=== PATIENT | male | born 1955 | race Caucasian/White ===

== ENCOUNTER 2017-04-02 11:26 | Observation (INO) | payer MEDICARE, OTHER ==
[~2017-04-02] VITALS: Ht 185.4 cm; Wt 68.0 kg
[~2017-04-02 11:26] MED LIST: BUSP15TA PO; CYMB60CA PO; DEPA500T3 PO; FENO160T PO; KLON2TAB PO; TRAZ100 PO; TRIH5 PO
[2017-04-02 11:31] VITALS: BP 108/53; PULSE 61; RESP 24; TEMP 97.4; O2SAT 95
[2017-04-02 11:37] VITALS: BP 108/53; PULSE 71; RESP 24; O2SAT 95
--- NOTE | 2017-04-02 11:43 | PD ---
HPI Chief Complaint: Altered Mental Status Time Seen by Provider: 11:43 Travel History International Travel<30 days: No Contact w/Intl Traveler<30days: No Traveled to known affect area: No History of Present Illness HPI 62-year-old male presents to the emergency Department by EMS for evaluation of altered mental status. Patient is from [place] today at [place]. Patient was sent here for altered mental status, constant body movements, no coordination and difficulty focusing. According to EMS, the patient was first noticed to be altered approximately a week ago, but has been declining over the past 3 months. Patient has history of psychiatric disorder including schizoaffective disorder and bipolar disorder. He is on Depakote. He also has a history of TIA, depression, dyskinesia, anxiety, [place], CVA, hyperlipidemia. The patient is unable to contribute to history and physical at all and does not answer questions appropriately. The patient moves all extremities and follows some commands, but not all. PFSH Past Medical History Medical History: Unable to Obtain Arthritis: No Asthma: No Autoimmune Disease: No Blood Disorders: No Bipolar Disorder: Yes Anxiety: Yes Depression: No Heart Rhythm Problems: No Cancer: No Cardiac Catheterization: No Cardiovascular Problems: Yes (2014) High Cholesterol: Yes Chemotherapy: No Chest Pain: Yes (HX- STRESS TEST) Congestive Heart Failure: No COPD: No Cerebrovascular Accident: Yes Coronary Artery Disease: Yes Diabetes: No Diminished Hearing: Yes (both ears) Endocrine: No GERD: Yes (GERD) Genitourinary: No Headaches: Yes Hepatitis: No Hiatal Hernia: No Hypertension: Yes Immune Disorder: No Implanted Vascular Access Dvce: No Insomnia: Yes Kidney Stones: No Musculoskeletal: No Neurologic: Yes Psychiatric: Yes (BIPOLAR, SCHITZOAFFECTIVE D/O) Reproductive: No Respiratory: No Immunizations Current: Yes Migraines: No Myocardial Infarction: Yes (2012) Radiation Therapy: No Renal Failure: No Seizures: No Sickle Cell Disease: No Sleep Apnea: No Thyroid Disease: No Ulcer: Yes Influenza Vaccination: No PNEUMOCCOCAL Vaccine (Year): 2010 Past Surgical History Surgical History: Unable to Obtain Abdominal Surgery: Yes (LEFT INGUINAL HERNIA) AICD: No Appendectomy: No Arteriovenous Shunt: No Cardiac Surgery: No Cholecystectomy: No Coronary Artery Bypass Graft: No Ear Surgery: No Endocrine Surgery: No Eye Surgery: No Genitourinary Surgery: No Gynecologic Surgery: No Insulin Pump: No Joint Replacement: No Oral Surgery: Yes Pacemaker: No Thoracic Surgery: No Other Surgery: Yes (PATIENT DENIED HAVING SURGERY IN PAST) Social History Alcohol Use: Yes (OCCASIONALLY ) Tobacco Use: Yes (3-4 CIGS A DAY ) Substance Use: No Allergies-Medications (Allergen,Severity, Reaction): Coded Allergies: No Known Allergies (Verified , 12/02/15) Reported Meds & Prescriptions Reported Meds & Active Scripts Active Reported Trihexyphenidyl (Trihexyphenidyl HCl) 5 Mg Tab 5 Mg PO TID Trazodone (Trazodone HCl) 150 Mg Tab 150 Mg PO HS Multivitamin Men (Multiple Vitamins W/ Minerals) 1 Tab Tab 1 Tab PO DAILY Marinol (Dronabinol) 5 Mg Cap 5 Mg PO DAILY Metoprolol Tartrate 25 Mg Tab 12.5 Mg PO BID Hold if SBP <120 or HR <60 Enulose Liq (Lactulose (Encephalopathy) Liq) 10 Gm/15 Ml Soln 20 Gm PO TID Lac-Hydrin (Lactic Acid (Ammonium Lactate)) 12% Lotn 1 Applic TOPICAL Q8HR Apply to affected area(s) every shift for rash Klonopin (Clonazepam) 2 Mg Tab 2 Mg PO Q8HR Nizoral Topical Shampoo (Ketoconazole) 2% Sham 1 Applic TOPICAL MOWEFR Apply to scalp every Monday,Monday and Monday for seborrheic dermatitis Hydroxyzine HCl 25 Mg Tab 25 Mg PO Q6HR PRN Lortab (Hydrocodone-Acetaminophen) 10-325 Mg Tab 1 Tab PO Q4H PRN Fenofibrate 160 Mg Tab 160 Mg PO HS Depakote DR (Divalproex Sodium) 250 Mg Tabdr 750 Mg PO BID Cymbalta DR (Duloxetine HCl) 60 Mg Capdr 120 Mg PO HS Review of Systems Except as stated in HPI: all other systems reviewed are Neg Physical Exam Narrative GENERAL: Well-nourished, well-developed male patient, who appears older than his stated age. Patient does have tardive dyskinesia and lip smacking. Patient does not answer any questions appropriately. He is alert, but not oriented. SKIN: Focused skin assessment warm/dry. HEAD: Normocephalic. Atraumatic. EYES: No scleral icterus. No injection or drainage. NECK: Supple, trachea midline. No JVD or lymphadenopathy. CARDIOVASCULAR: Regular rhythm without murmurs, gallops, or rubs. Patient is bradycardic with heart rate in the 40s to 50s. RESPIRATORY: Breath sounds equal bilaterally. No accessory muscle use. Lungs sounds are clear to auscultation. GASTROINTESTINAL: Abdomen soft, non-tender, nondistended. MUSCULOSKELETAL: No cyanosis, or edema. Patient moves all extremities without difficulty. BACK: Nontender without obvious deformity. No CVA tenderness. Data Data Last Documented VS Vital Signs Date Time Temp Pulse Resp B/P Pulse Ox O2 Delivery O2 Flow Rate FiO2 04/02/17 13:29 94 22 125/83 98 Room Air 04/02/17 11:31 97.4 Orders Electrocardiogram (04/02/17 11:41) Ammonia (04/02/17 11:41) Complete Blood Count With Diff (04/02/17 11:41) Comprehensive Metabolic Panel (04/02/17 11:41) Creatine Kinase (Cpk) (04/02/17 11:41) Prothrombin Time / Inr (Pt) (04/02/17 11:41) Act Partial Throm Time (Ptt) (04/02/17 11:41) Troponin I (04/02/17 11:41) Urinalysis - C+S If Indicated (04/02/17 11:41) Chest, Single Ap (04/02/17 11:41) Ct Brain W/O Iv Contrast(Rout) (04/02/17 11:41) Blood Glucose (04/02/17 11:41) Ecg Monitoring (04/02/17 11:41) Iv Access Insert/Monitor (04/02/17 11:41) Oximetry (04/02/17 11:41) Sodium Chloride 0.9% Flush (Ns Flush) (04/02/17 11:45) Magnesium (Mg) (04/02/17 11:41) Valproic Acid (Depakene) (04/02/17 11:41) Sodium Chlorid 0.9% 500 Ml Inj (Ns 500 M (04/02/17 11:45) Cath For Specimen (04/02/17 11:41) Urinary Catheter Management NANCY.Q8H (04/02/17 11:50) Diphenhydramine Inj (Benadryl Inj) (04/02/17 12:15) Ceftriaxone Inj (Rocephin Inj) (04/02/17 13:45) Admit Order (Ed Use Only) (04/02/17 13:48) Labs Laboratory Tests Test 04/02/17 04/02/17 11:47 12:03 White Blood Count 4.6 TH/MM3 Red Blood Count 4.18 MIL/MM3 Hemoglobin 13.4 GM/DL Hematocrit 38.4 % Mean Corpuscular Volume 91.8 FL Mean Corpuscular Hemoglobin 32.0 PG Mean Corpuscular Hemoglobin 34.9 % Concent Red Cell Distribution Width 14.8 % Platelet Count 134 TH/MM3 Mean Platelet Volume 7.5 FL Neutrophils (%) (Auto) 45.5 % Lymphocytes (%) (Auto) 32.9 % Monocytes (%) (Auto) 16.7 % Eosinophils (%) (Auto) 3.9 % Basophils (%) (Auto) 1.0 % Neutrophils # (Auto) 2.1 TH/MM3 Lymphocytes # (Auto) 1.5 TH/MM3 Monocytes # (Auto) 0.8 TH/MM3 Eosinophils # (Auto) 0.2 TH/MM3 Basophils # (Auto) 0.0 TH/MM3 CBC Comment DIFF FINAL Differential Comment Prothrombin Time 11.7 SEC Prothromb Time International 1.1 RATIO Ratio Activated Partial 30.6 SEC Thromboplast Time Sodium Level 142 MEQ/L Potassium Level 4.4 MEQ/L Chloride Level 104 MEQ/L Carbon Dioxide Level 32.5 MEQ/L Anion Gap 6 MEQ/L Blood Urea Nitrogen 25 MG/DL Creatinine 1.14 MG/DL Estimat Glomerular Filtration 65 ML/MIN Rate Random Glucose 81 MG/DL Calcium Level 9.2 MG/DL Magnesium Level 2.4 MG/DL Total Bilirubin 0.8 MG/DL Aspartate Amino Transf 37 U/L (AST/SGOT) Alanine Aminotransferase 27 U/L (ALT/SGPT) Alkaline Phosphatase 57 U/L Ammonia LESS THAN 10 MCMOL/L Total Creatine Kinase 54 U/L Troponin I 0.03 NG/ML Total Protein 6.7 GM/DL Albumin 2.9 GM/DL Valproic Acid (Depakene) Level 56 MCG/ML Urine Color DARK-YELLOW Urine Turbidity HAZY Urine pH 6.5 Urine Specific [place] 1.025 Urine Protein 30 mg/dL Urine Glucose (UA) NEG mg/dL Urine Ketones 10 mg/dL Urine Occult Blood TRACE Urine Nitrite NEG Urine Bilirubin NEG Urine Urobilinogen GREATER THAN 12.0 MG/DL Urine Leukocyte Esterase MOD Urine RBC 6 /hpf Urine WBC 6 /hpf Urine Transitional Epithelial 1 /hpf Cells Urine Hyaline Casts 4 /lpf Urine Mucus MANY /lpf Microscopic Urinalysis Comment CATH-CULT NOT IND MDM Medical Decision Making Medical Screen Exam Complete: Yes Emergency Medical Condition: Yes Medical Record Reviewed: Yes Interpretation(s) Last Impressions Chest X-Ray 04/02/17 1141 Signed Impressions: Service Date/Time: Sunday, April 02, 2017 11:52 - CONCLUSION: No acute disease. Casimiro Wallace MD CT brain - CONCLUSION: 1. Remote right thalamic lacunar infarct. 2. No acute intracranial abnormality. Differential Diagnosis Electrolyte abnormality versus cardiac arrhythmia versus pneumonia versus intracranial abnormality versus dehydration versus UTI versus hyperammonemia Narrative Course 62-year-old male presents to the emergency department from a month a group home for altered mental status. Apparently he has been declining over the past 3 months, but had worsening decline over the past week. EKG, CBC, CMP, CK, troponin, ammonia, magnesium, PTT, PTT/INR, Depakote level, UA are ordered and pending. Chest x-ray and CT of the brain are ordered and pending. Patient is given normal saline 500 mL bolus. EKG shows sinus bradycardia, heart rate 46, no acute ST changes. CBC shows no acute abnormality, platelets are low at 134. CMP shows no acute abnormality. CK is 54. Troponin is 0.03. Ammonia is less than 10. Magnesium is 2.4. PT is 11.7, and INR 1.1, PTT 30.6. Depakote level is 56. UA shows moderate leukocyte esterase, 6 WBC. Chest x-ray shows no acute disease. CT of the brain shows remote right thalamic lacunar infarct; no acute intracranial abnormality. Patient is given Rocephin 1 gm IV. He will be admitted for AMS; UTI. Residents are paged for admission. Dr. Truong accepted admission. Diagnosis Primary Impression: Altered mental status Qualified Code: R41.82 - Altered mental status, unspecified altered mental status type Additional Impression: Urinary tract infection Qualified Code: N30.01 - Acute cystitis with hematuria Admitting Information Admitting Physician Requests: Observation Yoselin Read April 02, 2017 11:43
[2017-04-02] MEDS ORDERED: SODIUM CHLORIDE 0.9% FLUSH 10 ML FLUSH IVF PRN (11:45)
[2017-04-02] MEDS ORDERED: SODIUM CHLORID 0.9% 500 ML INJ 500 ML IV ONE (11:45)
[2017-04-02 11:58] LABS: AUTOMATED NEUTROPHIL # 2.1 TH/MM3 (1.8-7.7); EOSINOPHIL # 0.2 TH/MM3 (0-0.4); EOSINOPHIL % 3.9 % (0.0-4.0); HEMATOCRIT 38.4 % (39.0-51.0); HEMO FLAGS DIFF FINAL; LYMPH % 32.9 % (9.0-44.0); LYMPHOCYTE # 1.5 TH/MM3 (1.0-4.8); MEAN CELL VOLUME 91.8 FL (80.0-100.0); MEAN CORPUSCULAR HGB CONC 34.9 % (32.0-36.0); MONO % 16.7 % (0.0-8.0); NEUT % 45.5 % (16.0-70.0); PLATELET COUNT 134 TH/MM3 (150-450); RED BLOOD COUNT 4.18 MIL/MM3 (4.50-5.90); RED CELL DISTRIBUTION WIDTH 14.8 % (11.6-17.2); WHITE BLOOD COUNT 4.6 TH/MM3 (4.0-11.0)
[2017-04-02] MEDS ORDERED: METO25TA3 PO (12:01)
[2017-04-02] MEDS ORDERED: KLON2TAB PO (12:01)
[2017-04-02] MEDS ORDERED: LAC-12LO3 TOPICAL (12:01)
[2017-04-02] MEDS ORDERED: CYMB60CA PO (12:01)
[2017-04-02] MEDS ORDERED: KETOC2%T TOPICAL (12:01)
[2017-04-02] MEDS ORDERED: HYDR-3133 PO (12:01)
[2017-04-02] MEDS ORDERED: TRIH5TAB2 PO (12:01)
[2017-04-02] MEDS ORDERED: FENO160T PO (12:01)
[2017-04-02] MEDS ORDERED: LACT10SO47 PO (12:01)
[2017-04-02] MEDS ORDERED: MARI5CAP PO (12:01)
[2017-04-02] MEDS ORDERED: MULT1TAB85 PO (12:01)
[2017-04-02] MEDS ORDERED: TRAZ150T75 PO (12:01)
[2017-04-02] MEDS ORDERED: DEPA250T2 PO (12:01)
[2017-04-02] MEDS ORDERED: HYDR-3535 PO (12:01)
--- NOTE | 2017-04-02 12:01 | RADRPT ---
EXAM DATE/TIME: 04/02/2017 11:52 [facility] COMPARISON: CHEST SINGLE AP, December 05, 2015, 8:20. INDICATIONS : Short of breath MEDICAL HISTORY : Cardiovascular disease. Hypertension seizure, history of intracranial hemmorhage SURGICAL HISTORY : None. ENCOUNTER: Initial ACUITY: 1 day PAIN SCORE: 0/10 LOCATION: Bilateral chest FINDINGS: A single view of the chest demonstrates the lungs to be symmetrically aerated without evidence of mas s, infiltrate or effusion. The cardiomediastinal contours are unremarkable. Osseous structures are intact. CONCLUSION: No acute disease. Casimiro Wallace MD on April 02, 2017 at 11:58 Board Certified Radiologist. This report was verified electronically.
[2017-04-02 12:07] LABS: APTT (PATIENT) 30.6 SEC (24.3-30.1); INTERNATIONAL NORMALIZED RATIO 1.1 RATIO; PROTHROMBIN TIME - PATIENT 11.7 SEC (9.8-11.6)
[2017-04-02 12:12] VITALS: BP 115/62; PULSE 64; RESP 18; O2SAT 96
[2017-04-02] MEDS ORDERED: diphenhydrAMINE HCL 50 MG/ML VIAL IV PUSH ONE ×2 (12:15→14:15)
[2017-04-02 12:17] LABS: BLOOD, URINE TRACE (NEG); GLUCOSE,URINE NEG (NEG); HYALINE CAST, URINE 4 /lpf (RARE); KETONE, URINE 10 mg/dL (NEG); MUCUS URINE MANY /lpf (OCC); NITRITE,URINE NEG (NEG); PH, URINE 6.5 (5.0-8.5); TRANSITIONAL EPI CELLS, URINE 1 /hpf; URINE COLOR DARK-YELLOW (YELLW/STRAW)
[2017-04-02 12:19] LABS: ALT (GPT) 27 U/L (12-78); ANION GAP 6 MEQ/L (5-15); AST (GOT) 37 U/L (15-37); BICARBONATE 32.5 MEQ/L (21.0-32.0); BLOOD UREA NITROGEN 25 MG/DL (7-18); CHLORIDE 104 MEQ/L (98-107); GLOMERULAR FILTRATION RATE 65 ML/MIN (>89); MAGNESIUM 2.4 MG/DL (1.5-2.5); POTASSIUM 4.4 MEQ/L (3.5-5.1); SODIUM (NA) 142 MEQ/L (136-145)
[2017-04-02 12:19] LABS: COMMENT (UR) CATH-CULT NOT IND; CULTURE IF INDICATED CATH CULTURE NOT IND
[2017-04-02 12:22] LABS: ALKALINE PHOSPHATASE 57 U/L (45-117); TOTAL BILIRUBIN ADULT 0.8 MG/DL (0.2-1.0)
[2017-04-02 12:25] LABS: CREATINE KINASE 54 U/L (39-308)
[2017-04-02 13:29] VITALS: BP 125/83; PULSE 94; RESP 22; O2SAT 98
--- NOTE | 2017-04-02 13:32 | RADRPT ---
EXAM DATE/TIME: 04/02/2017 13:16 [facility] COMPARISON: CT BRAIN W/O CONTRAST, December 02, 2015, 6:25. INDICATIONS : Altered Menta Status. RADIATION DOSE: 56.35 CTDIvol (mGy) MEDICAL HISTORY : Cardiovascular disease. Stroke Hypertension. SURGICAL HISTORY : None. ENCOUNTER: Initial ACUITY: 1 day PAIN SCALE: 0/10 LOCATION: cranial TECHNIQUE: Multiple contiguous axial images were obtained of the head. Using automated exposure control and adj ustment of the mA and/or kV according to patient size, radiation dose was kept as low as reasonably a chievable to obtain optimal diagnostic quality images. FINDINGS: CEREBRUM: The ventricles are normal for age. All lacunar infarcts right thalamus. No evidence of midline shift , mass lesion, hemorrhage or acute infarction. No extra-axial fluid collections are seen. POSTERIOR FOSSA: The cerebellum and brainstem are intact. The 4th ventricle is midline. The cerebellopontine angle i s unremarkable. EXTRACRANIAL: The visualized portion of the orbits is intact. SKULL: The calvaria is intact. No evidence of skull fracture. CONCLUSION: 1. Remote right thalamic lacunar infarct. 2. No acute intracranial abnormality. Casimiro Wallace MD on April 02, 2017 at 13:28 Board Certified Radiologist. This report was verified electronically.
[2017-04-02] MEDS ORDERED: cefTRIAXone INJ 1,000 MG in SODIUM CHLORIDE 0.9% INJ 100 ML IV ONE (13:45)
[2017-04-02] MEDS: SODIUM CHLORIDE 0.9% FLUSH 10 ML FLUSH IV FLUSH SCH ×2 (14:15→21:00)
[2017-04-02] MEDS ORDERED: SODIUM CHLORIDE 0.9% FLUSH 10 ML FLUSH IV FLUSH PRN (14:15)
[2017-04-02] MEDS: SODIUM CHLOR 0.9% 1000 ML INJ 1,000 ML IV SCH ×2 (14:44→23:45)
--- NOTE | 2017-04-02 14:45 | HHI.HP ---
HPI Service Family Medicine Primary Care Physician No Primary Care Physician Admission Diagnosis AMS, UTI Diagnoses: International Travel<30 Days: No Contact w/Intl Traveler<30days: No Known Affected Area: No History of Present Illness Patient is currently altered and unable to obtain history of present illness from the patient as the only question he can answer us his name History of present illness obtained from chart review This is a 62-year-old male with past medical history significant for schizoaffective disorder, tardive dyskinesia, seizures, hyperlipidemia, hypertension, dementia and CVA. He was brought in by EMS from his senior living at [facility] in [facility]. He has been having worsening dementia over the last 3 months but has been declining quickly over the last week. Today the altered mental status was severe enough they decided to bring him to the hospital. When asking him questions he can say his name, everything else is incoherent. Of note for seizures she is currently on Depakote, and levels are therapeutic Review of Systems ROS Limitations: Clinical Condition, Altered Mental Status, Uncooperative, Psychotic, Poor Historian Past Family Social History Past Medical History From chart review Schizoaffective disorder Seizure disorder Hypertension Hyperlipidemia Reported history of CAD, the patient denies Reported history of CVA, although the patient is not clear on this, and also is reportedly on Xarelto GERD Tardive dyskinesia Past Surgical History Inguinal hernia repair Tib-fib fracture repair Appendectomy Reported Medications Reported Meds & Active Scripts Active Reported Trihexyphenidyl (Trihexyphenidyl HCl) 5 Mg Tab 5 Mg PO TID Trazodone (Trazodone HCl) 150 Mg Tab 150 Mg PO HS Multivitamin Men (Multiple Vitamins W/ Minerals) 1 Tab Tab 1 Tab PO DAILY Marinol (Dronabinol) 5 Mg Cap 5 Mg PO DAILY Metoprolol Tartrate 25 Mg Tab 12.5 Mg PO BID Hold if SBP <120 or HR <60 Enulose Liq (Lactulose (Encephalopathy) Liq) 10 Gm/15 Ml Soln 20 Gm PO TID Lac-Hydrin (Lactic Acid (Ammonium Lactate)) 12% Lotn 1 Applic TOPICAL Q8HR Apply to affected area(s) every shift for rash Klonopin (Clonazepam) 2 Mg Tab 2 Mg PO Q8HR Nizoral Topical Shampoo (Ketoconazole) 2% Sham 1 Applic TOPICAL MOWEFR Apply to scalp every Monday,Monday and Monday for seborrheic dermatitis Hydroxyzine HCl 25 Mg Tab 25 Mg PO Q6HR PRN Lortab (Hydrocodone-Acetaminophen) 10-325 Mg Tab 1 Tab PO Q4H PRN Fenofibrate 160 Mg Tab 160 Mg PO HS Depakote [address] (Divalproex Sodium) 250 Mg Tabdr 750 Mg PO BID Cymbalta DR (Duloxetine HCl) 60 Mg Capdr 120 Mg PO HS Allergies: Coded Allergies: No Known Allergies (Verified , 12/02/15) Family History CAD Social History Lives in a senior living at [facility] Former history of tobacco abuse, patient quit timeline unknown For history of alcohol abuse, patient quit timeline unknown Denies illegal drug use Physical Exam Vital Signs Vital Signs Date Time Temp Pulse Resp B/P Pulse Ox O2 Delivery O2 Flow Rate FiO2 04/02/17 13:29 94 22 125/83 98 Room Air 04/02/17 12:12 64 18 115/62 96 Room Air 04/02/17 11:37 71 24 108/53 95 Room Air 04/02/17 11:31 97.4 61 24 108/53 95 Physical Exam GENERAL: Well-nourished, well-developed male patient, who appears older than his stated age. Patient does have tardive dyskinesia and lip smacking. Patient does not answer any questions appropriately. He is alert, but not oriented. Currently in restraints, with Pope in place SKIN: Focused skin assessment warm/dry. HEAD: Normocephalic. Atraumatic. EYES: No scleral icterus. No injection or drainage. NECK: Supple, trachea midline. No JVD or lymphadenopathy. CARDIOVASCULAR: Regular rhythm without murmurs, gallops, or rubs. Patient is bradycardic with heart rate in the 50s to 60s. RESPIRATORY: Breath sounds equal bilaterally. No accessory muscle use. Lungs sounds are clear to auscultation. Unable to follow commands for deep breaths GASTROINTESTINAL: Abdomen soft, non-tender, nondistended. MUSCULOSKELETAL: No cyanosis, or edema. Patient moves all extremities without difficulty. BACK: Nontender without obvious deformity. No CVA tenderness. Neuro: Awake and alert however not oriented. Only question he could coherently answer was his name, unable to follow commands. Jumbled speech. Tardive dyskinesia with lip smacking. Currently in restraints Laboratory Laboratory Tests Test 04/02/17 04/02/17 11:47 12:03 White Blood Count 4.6 Red Blood Count 4.18 Hemoglobin 13.4 Hematocrit 38.4 Mean Corpuscular Volume 91.8 Mean Corpuscular Hemoglobin 32.0 Mean Corpuscular Hemoglobin 34.9 Concent Red Cell Distribution Width 14.8 Platelet Count 134 Mean Platelet Volume 7.5 Neutrophils (%) (Auto) 45.5 Lymphocytes (%) (Auto) 32.9 Monocytes (%) (Auto) 16.7 Eosinophils (%) (Auto) 3.9 Basophils (%) (Auto) 1.0 Neutrophils # (Auto) 2.1 Lymphocytes # (Auto) 1.5 Monocytes # (Auto) 0.8 Eosinophils # (Auto) 0.2 Basophils # (Auto) 0.0 CBC Comment DIFF FINAL Differential Comment Prothrombin Time 11.7 Prothromb Time International 1.1 Ratio Activated Partial 30.6 Thromboplast Time Sodium Level 142 Potassium Level 4.4 Chloride Level 104 Carbon Dioxide Level 32.5 Anion Gap 6 Blood Urea Nitrogen 25 Creatinine 1.14 Estimat Glomerular Filtration 65 Rate Random Glucose 81 Calcium Level 9.2 Magnesium Level 2.4 Total Bilirubin 0.8 Aspartate Amino Transf 37 (AST/SGOT) Alanine Aminotransferase 27 (ALT/SGPT) Alkaline Phosphatase 57 Ammonia LESS THAN 10 Total Creatine Kinase 54 Troponin I 0.03 Total Protein 6.7 Albumin 2.9 Valproic Acid (Depakene) Level 56 Urine Color DARK-YELLOW Urine Turbidity HAZY Urine pH 6.5 Urine Specific [place] 1.025 Urine Protein 30 Urine Glucose (UA) NEG Urine Ketones 10 Urine Occult Blood TRACE Urine Nitrite NEG Urine Bilirubin NEG Urine Urobilinogen GREATER THAN 12.0 Urine Leukocyte Esterase MOD Urine RBC 6 Urine WBC 6 Urine Transitional Epithelial 1 Cells Urine Hyaline Casts 4 Urine Mucus MANY Microscopic Urinalysis Comment CATH-CULT NOT IND Date/Time Procedure Status Source Growth 04/02/17 12:03 Urine Culture Received Urine Catheterized Urine Pending Result Diagram: 04/02/17 1147 04/02/17 1147 Imaging Last Impressions Head CT 04/02/17 1141 Signed Impressions: Service Date/Time: Sunday, April 02, 2017 13:16 - CONCLUSION: 1. Remote right thalamic lacunar infarct. 2. No acute intracranial abnormality. Casimiro Wallace MD Chest X-Ray 04/02/17 1141 Signed Impressions: Service Date/Time: Sunday, April 02, 2017 11:52 - CONCLUSION: No acute disease. Casimiro Wallace MD Assessment and Plan Assessment and Plan This is a 62-year-old male with past medical history significant for schizoaffective disorder, tardive dyskinesia, seizures, hyperlipidemia, hypertension, dementia and CVA. Being admitted for altered mental status with questionable UTI. Code Status DNR Discussed Condition With WDW: Dr. Jaffe Problem List: (1) Altered mental status Status: Acute Plan: Patient with underlying dementia has been declining over the last 3 months. Rapid decline over the last week. Cause believed to be either UTI versus worsening since psychiatric disorder versus worsening dementia versus CVA versus seizure activity. * Admit to observation * Consulted neurology, recommendations appreciated * Consulted psychiatry, recommendations appreciated * MRI pending * IV NS at 110 MLS per hour * Troponins are within normal limits * See UTI plan below * Continue restraints * Continue Pope (2) Urinary tract infection Status: Acute Plan: Urine is dark, hazy, trace blood, positive urobilinogen, many mucus. Questionable for urinary tract infection * Continue Rocephin 1 g IV every 24 hours (3) Seizure Status: Chronic Plan: History of seizure activity. Currently on Depakote levels are therapeutic. * Neurology consulted, recommendations appreciated * Continue home medication of Depakote * Continue clonazepam (4) Schizoaffective disorder Status: Chronic Plan: History of schizoaffective disorder with tardive dyskinesia * Continue home medication of duloxetine * Continue home medication of Trihexyphenidyl (5) HTN (hypertension) Status: Chronic Plan: Long-standing history of hypertension. * Continue home medication metoprolol, but will hold for SBP less than 120 or heart rate less than 60 (6) Nutrition, metabolism, and development symptoms Status: Acute Plan: Diet: Soft diet Currently in restraints Neuro checks every 4 Vitals every 4 Monitor I's and O's Placed on bereavement program coordinator electrolytes and replace accordingly CODE STATUS: Full code Disposition: Uncertain at this time, and the recommendations from neurology, psychiatry as well as improvement of altered mental status Problem Qualifiers (1) Altered mental status: Qualified Code: R41.82 - Altered mental status, unspecified altered mental status type (2) Urinary tract infection: Qualified Code: N30.01 - Acute cystitis with hematuria Eddi Truong MD R2 April 02, 2017 14:45
[2017-04-02] MEDS: ENOXAPARIN SODIUM 40 MG/0.4 ML SYRINGE SQ SCH (14:49)
[2017-04-02] MEDS ORDERED: LORazepam 2 MG/ML VIAL IV PUSH ONE (15:00)
[2017-04-02 15:52] VITALS: BP 113/60; PULSE 92; RESP 18; TEMP 97.8; O2SAT 95
[2017-04-02] MEDS: LACTULOSE SYRUP 20 GM/30 ML CUP PO SCH (18:42)
[2017-04-02] MEDS: TRIHEXYPHENIDYL HCL 5 MG TAB PO SCH (18:42)
--- NOTE | 2017-04-02 18:54 | RADRPT ---
EXAM DATE/TIME: 04/02/2017 18:09 [facility] COMPARISON: No previous studies available for comparison. INDICATIONS : CVA. MEDICAL HISTORY : Hypertension. SURGICAL HISTORY : Inguinal hernia repair. ENCOUNTER: Initial ACUITY: 1 day PAIN SCORE: 0/10 LOCATION: cranial TECHNIQUE: Multiplanar, multisequence MRI of the brain was performed without contrast. FINDINGS: Moderate motion artifact is present. Scattered periventricular white matter changes are noted. Ther e is no restricted diffusion evident. Midline structures are intact GRE acquisitions are degraded by motion. Ventricular size is appropriate There are no extra-axial fluid collections appreciated Posterior fossa is unremarkable. CONCLUSION: Limited by motion, negative for an acute process.. Noel Calle MD FACR on April 02, 2017 at 18:51 Board Certified Radiologist. This report was verified electronically.
[2017-04-02 20:03] VITALS: PULSE 60
[2017-04-02] MEDS: DIVALPROEX SODIUM DELAYED RELEASE 250 MG TAB PO SCH (21:13)
[2017-04-02] MEDS: FENOFIBRATE 145 MG TAB PO SCH (21:13)
[2017-04-02] MEDS: METOPROLOL TARTRATE 25 MG TAB PO SCH (21:13)
[2017-04-02] MEDS: DULoxetine HCl DR 60 MG CAP PO SCH (21:13)
[2017-04-02] MEDS: LACTIC ACID (AMMONIUM LACTATE) 12% LOTION 225 GM BTL TOPICAL SCH (21:14)
[2017-04-02] MEDS: clonazePAM 1 MG TAB PO SCH (21:16)
[2017-04-03 00:27] VITALS: BP 115/70; PULSE 85; RESP 20; O2SAT 99
[2017-04-03 05:17] VITALS: BP 97/56; PULSE 58; RESP 20; O2SAT 99
[2017-04-03] MEDS: clonazePAM 1 MG TAB PO SCH ×3 (06:02→20:35)
[2017-04-03] MEDS: LACTIC ACID (AMMONIUM LACTATE) 12% LOTION 225 GM BTL TOPICAL SCH ×3 (06:03→20:36)
[2017-04-03 08:00] VITALS: BP 106/59; PULSE 52; PULSE 80; RESP 19; TEMP 97.5; O2SAT 94
[2017-04-03 08:24] LABS: AUTOMATED NEUTROPHIL # 3.9 TH/MM3 (1.8-7.7); BASOPHIL % 0.6 % (0.0-2.0); EOSINOPHIL # 0.3 TH/MM3 (0-0.4); EOSINOPHIL % 3.8 % (0.0-4.0); HEMATOCRIT 31.8 % (39.0-51.0); HEMO FLAGS DIFF FINAL; LYMPH % 20.7 % (9.0-44.0); LYMPHOCYTE # 1.4 TH/MM3 (1.0-4.8); MEAN CELL VOLUME 91.7 FL (80.0-100.0); MEAN CORPUSCULAR HEMOGLOBIN 31.8 PG (27.0-34.0); MEAN CORPUSCULAR HGB CONC 34.7 % (32.0-36.0); MONO % 15.9 % (0.0-8.0); PLATELET COUNT 114 TH/MM3 (150-450); RED BLOOD COUNT 3.47 MIL/MM3 (4.50-5.90); RED CELL DISTRIBUTION WIDTH 14.9 % (11.6-17.2); WHITE BLOOD COUNT 6.7 TH/MM3 (4.0-11.0)
[2017-04-03] MEDS: SODIUM CHLOR 0.9% 1000 ML INJ 1,000 ML IV SCH ×2 (08:27→17:33)
[2017-04-03 08:55] LABS: ALKALINE PHOSPHATASE 50 U/L (45-117); ALT (GPT) 20 U/L (12-78); ANION GAP 6 MEQ/L (5-15); AST (GOT) 28 U/L (15-37); BICARBONATE 30.5 MEQ/L (21.0-32.0); BLOOD UREA NITROGEN 15 MG/DL (7-18); CHLORIDE 107 MEQ/L (98-107); GLOMERULAR FILTRATION RATE 96 ML/MIN (>89); POTASSIUM 3.8 MEQ/L (3.5-5.1); SODIUM (NA) 143 MEQ/L (136-145); TOTAL BILIRUBIN ADULT 0.7 MG/DL (0.2-1.0)
[2017-04-03] MEDS: SODIUM CHLORIDE 0.9% FLUSH 10 ML FLUSH IV FLUSH SCH ×2 (09:00→20:34)
--- NOTE | 2017-04-03 11:46 | HHI.FPPN ---
Subjective Remarks Patient seen and examined this morning. When asking questions about how he is doing today and what his name is, he says he does not feel like talking or answering questions. Vital signs overnight have been stable. Nursing reports no concerns or questions. (Rody Reyna MD) Objective Vitals Vital Signs Date Time Temp Pulse Resp B/P Pulse Ox O2 Delivery O2 Flow Rate FiO2 04/03/17 08:00 97.5 80 19 106/59 94 04/03/17 05:17 58 20 97/56 99 04/03/17 00:27 85 20 115/70 99 04/02/17 20:03 60 04/02/17 15:52 97.8 92 18 113/60 95 04/02/17 13:29 94 22 125/83 98 Room Air 04/02/17 12:12 64 18 115/62 96 Room Air 04/02/17 11:37 71 24 108/53 95 Room Air I/O 04/02/17 04/02/17 04/02/17 04/03/17 04/03/17 04/03/17 07:00 15:00 23:00 07:00 15:00 23:00 Intake Total 220 ml 240 ml Output Total 700 ml 600 ml Balance -480 ml -360 ml Intake Oral 240 ml IV Total 220 ml Output Urine Total 700 ml 600 ml (Rody Reyna MD) Result Diagram: 04/03/17 0736 04/03/17 0736 Imaging Last Impressions Head CT 04/02/17 1141 Signed Impressions: Service Date/Time: Sunday, April 02, 2017 13:16 - CONCLUSION: 1. Remote right thalamic lacunar infarct. 2. No acute intracranial abnormality. Casimiro Wallace MD Chest X-Ray 04/02/17 1141 Signed Impressions: Service Date/Time: Sunday, April 02, 2017 11:52 - CONCLUSION: No acute disease. Casimiro Wallace MD Brain MRI 04/02/17 0000 Signed Impressions: Service Date/Time: Sunday, April 02, 2017 18:09 - CONCLUSION: Limited by motion , negative for an acute process.. Noel Calle MD FACR Objective Remarks GENERAL: Well-nourished, well-developed male patient, who appears older than his stated age. Patient does have tardive dyskinesia and lip smacking. He is alert, but not oriented. Currently in restraints, with Pope in place CARDIOVASCULAR: Regular rate and rhythm without murmurs, gallops, or rubs. 0s. RESPIRATORY: Breath sounds equal bilaterally. No accessory muscle use. Lungs sounds are clear to auscultation. GASTROINTESTINAL: Abdomen soft, non-tender, nondistended. MUSCULOSKELETAL: No cyanosis, or edema. Patient moves all extremities without difficulty. BACK: Nontender without obvious deformity. No CVA tenderness. Neuro: Awake and alert however not oriented. Able to follow commands. Moves all 4 extremities well. Tardive dyskinesia with lip smacking. Currently in restraints (Rody Reyna MD) Urinary Catheter: Yes Assessment to: Continue Pope insert reason: Prolonged Immobilization (Rody Reyna MD) A/P Assessment and Plan This is a 62-year-old male with past medical history significant for schizoaffective disorder, tardive dyskinesia, seizures, hyperlipidemia, hypertension, dementia and CVA. Being admitted for altered mental status with questionable UTI. Discharge Planning Pending results of urine and blood cultures and improvement in mental status, possibly within next 1-2 days (Rody Reyna MD) Attending Attestation Patient seen and examined. Case reviewed and discussed with the resident team. Agree with plan of care as discussed with me and documented in the resident note (Rubén Jaffe MD) Problem List: (1) Altered mental status Status: Acute Plan: Patient with underlying dementia has been declining over the last 3 months. Rapid decline over the last week. Cause believed to be either UTI versus worsening since psychiatric disorder versus worsening dementia. MRI brain was limited by motion, but was negative for an acute process. Troponin within normal limits. * Admit to observation * Consulted psychiatry, recommendations appreciated * Canceled consultation to neurology, patient is moving all 4 extremities well * IV NS at 110 MLS per hour * Blood cultures no growth 1 day * See UTI plan below * Continue restraints * Continue Pope * Discussed with nurse and patient did not present to the hospital with hearing aids, but appears to be hard of hearing. Nurse states that she will call the group home to find out if he does have hearing aids and if we can get these for him. (2) Urinary tract infection Status: Acute Plan: Urine is dark, hazy, trace blood, positive urobilinogen, many mucus. Questionable for urinary tract infection * Continue Rocephin 1 g IV every 24 hours * Urine culture no growth in 24 hours preliminary (3) Seizure Status: Chronic Plan: History of seizure activity. Currently on Depakote levels are therapeutic. * Continue home medication of Depakote * Continue clonazepam (4) Schizoaffective disorder Status: Chronic Plan: History of schizoaffective disorder with tardive dyskinesia * Continue home medication of duloxetine * Continue home medication of Trihexyphenidyl * Psychiatry consulted (5) HTN (hypertension) Status: Chronic Plan: Long-standing history of hypertension. * Continue home medication metoprolol, but will hold for SBP less than 120 or heart rate less than 60 (6) Nutrition, metabolism, and development symptoms Status: Acute Plan: Diet: Soft diet Currently in restraints Neuro checks every 4 Vitals every 4 Monitor I's and O's Placed on combination saw operator electrolytes and replace accordingly CODE STATUS: Full code (Rody Reyna MD) Problem Qualifiers (1) Altered mental status: Qualified Code: R41.82 - Altered mental status, unspecified altered mental status type (2) Urinary tract infection: Qualified Code: N30.01 - Acute cystitis with hematuria Rody Reyna MD April 03, 2017 11:46 Rubén Jaffe MD April 04, 2017 09:02
[2017-04-03] MEDS: DRONABINOL 5 MG CAP PO SCH (11:48)
[2017-04-03] MEDS: MULTIVITAMINS/MINERALS THERAPEUTIC TAB PO SCH (11:49)
[2017-04-03] MEDS: DIVALPROEX SODIUM DELAYED RELEASE 250 MG TAB PO SCH ×2 (11:49→20:35)
[2017-04-03] MEDS: METOPROLOL TARTRATE 25 MG TAB PO SCH ×2 (11:50→20:18)
[2017-04-03] MEDS: TRIHEXYPHENIDYL HCL 5 MG TAB PO SCH ×3 (11:50→18:35)
[2017-04-03] MEDS: LACTULOSE SYRUP 20 GM/30 ML CUP PO SCH ×3 (11:50→18:35)
[2017-04-03 12:08] VITALS: BP 135/80; PULSE 114; RESP 19; TEMP 97.8; O2SAT 100
--- NOTE | 2017-04-03 14:06 | PD.CONS ---
Provisional Diagnosis Admission Date April 02, 2017 at 13:49 [place]. History of schizoaffective disorder, delirium History of Present Illness Service Psychiatry Consult Requested By Primary Care Physician No Primary Care Physician HPI The patient is a 62-year-old man, domiciled in [facility] in [facility] with psychiatric history of schizoaffective disorder, tardive dyskinesia, medical history of seizures, hyperlipidemia, hypertension, dementia and CVA, who was brought in by EMS from his m[facility] at He has been having worsening dementia over the last 3 months but has been declining quickly over the last week. Patient was consulted to psychiatry due to altered mental status. On psychiatric evaluation today patient is found in his cubicle in the ER, patient is alert, but incoherent, disoriented, unable to provide any significant information for the psychiatric assessment at this moment. Patient is on Depakote 750 mg twice a day for seizures, Cymbalta 120 mg, clonazepam 2 mg 3 times a day, and trazodone 200 mg at bedtime. There is no suicidality or homicidality documented.. Past Family Social History Coded Allergies: No Known Allergies (Verified , 12/02/15) Reported Medications Trihexyphenidyl 5 Mg Tab5 Mg PO TID #90 TAB Ref 0 04/02/17 Trazodone 150 Mg Coa183 Mg PO HS #30 TAB Ref 0 04/02/17 Multiple Vitamins W/ Minerals (Multivitamin Men)1 Tab Tab1 Tab PO DAILY Ref 0 04/02/17 Dronabinol (Marinol)5 Mg Cap5 Mg PO DAILY Ref 0 04/02/17 Metoprolol Tartrate 25 Mg Tab12.5 Mg PO BID #60 TAB Ref 0 Hold if SBP <120 or HR <60 04/02/17 Lactulose (Encephalopathy) Liq (Enulose Liq)10 Gm/15 Ml Soln20 Gm PO TID 04/02/17 Lactic Acid (Ammonium Lactate) (Lac-Hydrin)12% Lotn1 Applic TOPICAL Q8HR #225 ML Ref 0 Apply to affected area(s) every shift for rash 04/02/17 Clonazepam (Klonopin)2 Mg Tab2 Mg PO Q8HR #90 TAB Ref 0 04/02/17 Ketoconazole Topical Shampoo (Nizoral Topical Shampoo)2% Sham1 Applic TOPICAL MOWEFR Ref 0 Apply to scalp every Monday,Monday and Monday for seborrheic dermatitis 04/02/17 Hydroxyzine HCl 25 Mg Tab25 Mg PO Q6HR PRN (ITCHING) Ref 0 04/02/17 Hydrocodone-Acetaminophen (Lortab)10-325 Mg Tab1 Tab PO Q4H PRN (PAIN) Ref 0 04/02/17 Fenofibrate 160 Mg Umm369 Mg PO HS #30 TAB Ref 0 04/02/17 Divalproex (Renetta IBARRA)250 Mg Nuqhl339 Mg PO BID #60 TAB Ref 0 04/02/17 Duloxetine (Arturo IBARRA)60 Mg [id number] Mg PO HS #30 CAP Ref 0 04/02/17 Current Medications Medications (Trade) Dose Ordered Sig/Rhett Route Start Time Stop Time Status Last Admin (NS Flush) 2 ml UNSCH PRN IV FLUSH 04/02/17 14:15 (NS Flush) 2 ml BID IV FLUSH 04/02/17 14:15 Enoxaparin Sodium 40 mg 40 mg Q24H SQ 04/02/17 15:00 04/02/17 14:49 Sodium Chloride 1,000 ml @ 110 mls/hr Q9H6M IV 04/02/17 14:15 04/03/17 08:27 (Rocephin Inj/NS Inj) 100 ml @ 200 mls/hr Q24H IV 04/03/17 14:00 (KlonoPIN) 2 mg Q8HR PO 04/02/17 22:00 04/03/17 06:02 (Renetta Ibarra) 750 mg BID PO 04/02/17 21:00 04/03/17 11:49 (Marinol) 5 mg DAILY PO 04/03/17 09:00 04/03/17 11:48 (Arturo Ibarra) 120 mg HS PO 04/02/17 21:00 04/02/17 21:13 (Lac-Hydrin 12% Lotion) 1 applic Q8HR TOPICAL 04/02/17 22:00 04/03/17 06:03 (Lopressor) 12.5 mg BID PO 04/02/17 21:00 04/03/17 11:50 (Theragran M Tab) 1 tab DAILY PO 04/03/17 09:00 04/03/17 11:49 (Artane) 5 mg TID PO 04/02/17 18:00 04/03/17 11:50 (Tricor) 145 mg HS PO 04/02/17 21:00 04/02/17 21:13 (Lactulose Liq) 30 ml TID PO 04/02/17 18:00 04/03/17 11:50 Physical Exam Vital Signs Vital Signs Date Time Temp Pulse Resp B/P Pulse Ox O2 Delivery O2 Flow Rate FiO2 04/03/17 12:08 97.8 114 19 135/80 100 04/02/17 13:29 Room Air I/O 04/02/17 04/02/17 04/02/17 07:59 15:59 23:59 Intake Total 220 ml Output Total 700 ml Balance -480 ml Mental Status Examination Uncooperative Appearance man, age appearing, oppositional, disoriented, poorly cooperative Assessment & Plan Problem List: (1) Delirium due to another medical condition Assessment & Plan: Patient was seen for psychiatric evaluation, patient is non- cooperative, disoriented, incoherent, unable to provide any meaningful information for the psychiatric assessment at this moment. 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 Will continue current psychotropics. We'll continue aggressive medical treatment. Patient does not meet criteria for psychiatric admission. We'll follow-up. ICD Code: F05 Assessment & Plan Estimated LOS: Jewel Sierra MD April 03, 2017 14:06
[2017-04-03] MEDS: ENOXAPARIN SODIUM 40 MG/0.4 ML SYRINGE SQ SCH (15:22)
[2017-04-03] MEDS: cefTRIAXone INJ 1,000 MG in SODIUM CHLORIDE 0.9% INJ 100 ML IV SCH (15:22)
--- NOTE | 2017-04-03 15:55 | EKG ---
Date Performed: 04/02/2017 Time Performed: 11:54:37 PTAGE: 62 years EKG: SINUS BRADYCARDIA BORDERLINE ECG PREVIOUS TRACING : 01/05/2015 17.01 Compared to previous tracing, sinus rate is slower. DOCTOR: Eddi Everett Interpretating Date/Time 04/03/2017 15:53:51
[2017-04-03] MEDS: DULoxetine HCl DR 60 MG CAP PO SCH (20:35)
[2017-04-03] MEDS: FENOFIBRATE 145 MG TAB PO SCH (20:35)
[2017-04-03 22:23] LABS: CREATINE KINASE 47 U/L (39-308)
[2017-04-04] VITALS (7 sets, daily range): BP systolic 86–123; BP diastolic 58–75; PULSE 53–90; RESP 16–20; TEMP 97.6–98.5; O2SAT 94–100
[2017-04-04] MEDS: SODIUM CHLOR 0.9% 1000 ML INJ 1,000 ML IV SCH ×3 (02:39→21:00)
[2017-04-04 05:39] LABS: HEMATOCRIT 31.7 % (39.0-51.0); MEAN CELL VOLUME 91.7 FL (80.0-100.0); MEAN CORPUSCULAR HEMOGLOBIN 31.6 PG (27.0-34.0); MEAN CORPUSCULAR HGB CONC 34.5 % (32.0-36.0); PLATELET COUNT 124 TH/MM3 (150-450); RED BLOOD COUNT 3.46 MIL/MM3 (4.50-5.90); RED CELL DISTRIBUTION WIDTH 14.5 % (11.6-17.2); REVIEW FLAG FINAL; WHITE BLOOD COUNT 6.3 TH/MM3 (4.0-11.0)
[2017-04-04 06:05] LABS: BICARBONATE 27.4 MEQ/L (21.0-32.0); POTASSIUM 3.6 MEQ/L (3.5-5.1)
[2017-04-04] MEDS: LACTIC ACID (AMMONIUM LACTATE) 12% LOTION 225 GM BTL TOPICAL SCH ×3 (06:19→22:00)
[2017-04-04] MEDS: clonazePAM 1 MG TAB PO SCH ×3 (06:19→20:56)
[2017-04-04] MEDS ORDERED: SODIUM CHLORID 0.9% 500 ML INJ 500 ML IV ONE (08:45)
[2017-04-04] MEDS: TRIHEXYPHENIDYL HCL 5 MG TAB PO SCH ×3 (09:00→18:14)
[2017-04-04] MEDS: SODIUM CHLORIDE 0.9% FLUSH 10 ML FLUSH IV FLUSH SCH ×2 (09:00→20:56)
--- NOTE | 2017-04-04 09:36 | HHI.FPPN ---
Subjective Remarks Patient seen and examined this morning. Overnight had bradycardia, and this morning was hypotensive. Temperature was 98.5. Patient is lying in bed in restraints. Not answering questions coherently today. Objective Vitals Vital Signs Date Time Temp Pulse Resp B/P Pulse Ox O2 Delivery O2 Flow Rate FiO2 04/04/17 08:10 86/60 04/04/17 07:57 97.8 60 18 100 04/04/17 04:30 53 04/04/17 00:12 98.5 72 20 123/75 97 04/03/17 12:08 97.8 114 19 135/80 100 I/O 04/03/17 04/03/17 04/03/17 04/04/17 04/04/17 04/04/17 07:00 15:00 23:00 07:00 15:00 23:00 Intake Total 240 ml 39003 ml Output Total 600 ml Balance -360 ml 23809 ml Intake Oral 240 ml 200 ml IV Total 00208 ml Output Urine Total 600 ml Result Diagram: 04/04/17 0502 04/04/17 0502 Imaging Last Impressions Head CT 04/02/17 1141 Signed Impressions: Service Date/Time: Sunday, April 02, 2017 13:16 - CONCLUSION: 1. Remote right thalamic lacunar infarct. 2. No acute intracranial abnormality. Casimiro Wallace MD Chest X-Ray 04/02/17 1141 Signed Impressions: Service Date/Time: Sunday, April 02, 2017 11:52 - CONCLUSION: No acute disease. Casimiro Wallace MD Brain MRI 04/02/17 0000 Signed Impressions: Service Date/Time: Sunday, April 02, 2017 18:09 - CONCLUSION: Limited by motion , negative for an acute process.. Noel Calle MD FACR Objective Remarks GENERAL: Well-nourished, well-developed male patient, who appears older than his stated age. Patient does have tardive dyskinesia and lip smacking. He is alert, but not oriented. Currently in restraints, with Pope in place CARDIOVASCULAR: Regular rate and rhythm without murmurs, gallops, or rubs. 0s. RESPIRATORY: Breath sounds equal bilaterally. No accessory muscle use. Lungs sounds are clear to auscultation. GASTROINTESTINAL: Abdomen soft, non-tender, nondistended. MUSCULOSKELETAL: No cyanosis, or edema. Patient moves all extremities without difficulty. BACK: Nontender without obvious deformity. No CVA tenderness. Neuro: Awake and alert however not oriented. Able to follow commands. Moves all 4 extremities well. Tardive dyskinesia with lip smacking. Currently in restraints Medications and IVs Current Medications Medications (Trade) Dose Ordered Sig/Rhett Route Start Time Stop Time Status Last Admin (NS Flush) 2 ml UNSCH PRN IV FLUSH 04/02/17 14:15 (NS Flush) 2 ml BID IV FLUSH 04/02/17 14:15 04/04/17 09:00 Enoxaparin Sodium 40 mg 40 mg Q24H SQ 04/02/17 15:00 04/03/17 15:22 Sodium Chloride 1,000 ml @ 110 mls/hr Q9H6M IV 04/02/17 14:15 04/03/17 08:27 (Rocephin Inj/NS Inj) 100 ml @ 200 mls/hr Q24H IV 04/03/17 14:00 04/03/17 15:22 (KlonoPIN) 2 mg Q8HR PO 04/02/17 22:00 04/04/17 06:19 (Depakote Dr) 750 mg BID PO 04/02/17 21:00 04/03/17 20:35 (Marinol) 5 mg DAILY PO 04/03/17 09:00 04/03/17 11:48 (Cymbalta Dr) 120 mg HS PO 04/02/17 21:00 04/03/17 20:35 (Lac-Hydrin 12% Lotion) 1 applic Q8HR TOPICAL 04/02/17 22:00 04/04/17 06:19 (Lopressor) 12.5 mg BID PO 04/02/17 21:00 04/03/17 11:50 (Theragran M Tab) 1 tab DAILY PO 04/03/17 09:00 04/03/17 11:49 (Artane) 5 mg TID PO 04/02/17 18:00 04/03/17 18:35 (Tricor) 145 mg HS PO 04/02/17 21:00 04/03/17 20:35 Lactulose 30 ml 30 ml TID PO 04/02/17 18:00 04/03/17 18:35 (NS 500 ml Inj) 500 ml @ 500 mls/hr BOLUS ONCE IV 04/04/17 08:45 04/04/17 09:44 04/04/17 09:21 A/P Assessment and Plan This is a 62-year-old male with past medical history significant for schizoaffective disorder, tardive dyskinesia, seizures, hyperlipidemia, hypertension, dementia and CVA. Being admitted for altered mental status with questionable UTI. Discharge Planning Pending results of urine and blood cultures and improvement in mental status, possibly within next 1-2 days Problem List: (1) Altered mental status Status: Acute Plan: Patient with underlying dementia has been declining over the last 3 months. Rapid decline over the last week. Cause believed to be either UTI versus worsening since psychiatric disorder versus worsening dementia. MRI brain was limited by motion, but was negative for an acute process. Troponin within normal limits. * Admit to observation * Consulted psychiatry, recommendations appreciated * Canceled consultation to neurology, patient is moving all 4 extremities well * IV NS at 110 MLS per hour * Blood cultures no growth 1 day * See UTI plan below * Continue restraints * Continue Pope * Discussed with nurse and patient did not present to the hospital with hearing aids, but appears to be hard of hearing. Nurse states that she will call the [facility] to find out if he does have hearing aids and if we can get these for him. (2) Urinary tract infection Status: Acute Plan: Urine is dark, hazy, trace blood, positive urobilinogen, many mucus. Questionable for urinary tract infection * Continue Rocephin 1 g IV every 24 hours * Urine culture no growth in 24 hours preliminary (3) Seizure Status: Chronic Plan: History of seizure activity. Currently on Depakote levels are therapeutic. * Continue home medication of Depakote * Continue clonazepam (4) Schizoaffective disorder Status: Chronic Plan: History of schizoaffective disorder with tardive dyskinesia * Continue home medication of duloxetine * Continue home medication of Trihexyphenidyl * Psychiatry consulted (5) HTN (hypertension) Status: Chronic Plan: Long-standing history of hypertension. * Continue home medication metoprolol, but will hold for SBP less than 120 or heart rate less than 60 (6) Nutrition, metabolism, and development symptoms Status: Acute Plan: Diet: Soft diet Currently in restraints Neuro checks every 4 Vitals every 4 Monitor I's and O's Placed on curtain cleaner electrolytes and replace accordingly CODE STATUS: Full code Problem Qualifiers (1) Altered mental status: Qualified Code: R41.82 - Altered mental status, unspecified altered mental status type (2) Urinary tract infection: Qualified Code: N30.01 - Acute cystitis with hematuria Eddi Truong MD R2 April 04, 2017 09:36
[2017-04-04] MEDS: LACTULOSE SYRUP 20 GM/30 ML CUP PO SCH ×3 (10:46→18:14)
[2017-04-04] MEDS: MULTIVITAMINS/MINERALS THERAPEUTIC TAB PO SCH (10:47)
[2017-04-04] MEDS: DIVALPROEX SODIUM DELAYED RELEASE 250 MG TAB PO SCH ×2 (10:47→20:54)
[2017-04-04] MEDS: DRONABINOL 5 MG CAP PO SCH (10:48)
[2017-04-04] MEDS: METOPROLOL TARTRATE 25 MG TAB PO SCH ×2 (10:48→20:56)
--- NOTE | 2017-04-04 14:37 | EKG ---
Date Performed: 04/03/2017 Time Performed: 18:46:33 PTAGE: 62 years EKG: SINUS BRADYCARDIA LOW QRS VOLTAGE IN PRECORDIAL LEADS Since previous tracing, no significan t change noted BORDERLINE ECG PREVIOUS TRACING : 04/02/2017 11.54 DOCTOR: Eddi Everett Interpretating Date/Time 04/04/2017 14:35:36
[2017-04-04] MEDS: cefTRIAXone INJ 1,000 MG in SODIUM CHLORIDE 0.9% INJ 100 ML IV SCH (15:54)
[2017-04-04] MEDS: ENOXAPARIN SODIUM 40 MG/0.4 ML SYRINGE SQ SCH (15:55)
[2017-04-04] MEDS: DULoxetine HCl DR 60 MG CAP PO SCH (20:55)
[2017-04-04] MEDS: FENOFIBRATE 145 MG TAB PO SCH (20:55)
[2017-04-05] VITALS (8 sets, daily range): BP systolic 102–159; BP diastolic 62–96; PULSE 60–92; RESP 18–22; TEMP 97.6–98.2; O2SAT 94–100
[2017-04-05 05:37] LABS: HEMATOCRIT 30.1 % (39.0-51.0); MEAN CELL VOLUME 90.8 FL (80.0-100.0); MEAN CORPUSCULAR HEMOGLOBIN 32.1 PG (27.0-34.0); MEAN CORPUSCULAR HGB CONC 35.3 % (32.0-36.0); PLATELET COUNT 129 TH/MM3 (150-450); RED BLOOD COUNT 3.31 MIL/MM3 (4.50-5.90); RED CELL DISTRIBUTION WIDTH 14.2 % (11.6-17.2); REVIEW FLAG FINAL; WHITE BLOOD COUNT 6.5 TH/MM3 (4.0-11.0)
[2017-04-05 06:07] LABS: BICARBONATE 28.6 MEQ/L (21.0-32.0); POTASSIUM 3.6 MEQ/L (3.5-5.1)
[2017-04-05] MEDS: clonazePAM 1 MG TAB PO SCH ×3 (06:18→23:56)
[2017-04-05] MEDS: LACTIC ACID (AMMONIUM LACTATE) 12% LOTION 225 GM BTL TOPICAL SCH ×3 (06:18→23:56)
[2017-04-05] MEDS: SODIUM CHLOR 0.9% 1000 ML INJ 1,000 ML IV SCH ×3 (06:18→20:50)
--- NOTE | 2017-04-05 07:27 | HHI.FPPN ---
Subjective Remarks Patient lying in bed in restraints, not responding appropriately to questions. Overnight nurse said that he was restless most of the night, tried to pull out maguire. Objective Vitals Vital Signs Date Time Temp Pulse Resp B/P Pulse Ox O2 Delivery O2 Flow Rate FiO2 04/05/17 04:18 67 04/05/17 04:00 71 20 150/70 95 04/05/17 00:00 76 20 115/69 99 04/04/17 19:00 65 20 96/58 94 04/04/17 15:19 97.6 58 16 96/62 96 04/04/17 11:43 97.7 90 18 99/58 99 04/04/17 08:10 86/60 04/04/17 07:57 97.8 60 18 100 I/O 04/04/17 04/04/17 04/04/17 04/05/17 04/05/17 04/05/17 07:00 15:00 23:00 07:00 15:00 23:00 Intake Total 1120 ml 240 ml Output Total 475 ml 700 ml Balance 645 ml -460 ml Intake Oral 120 ml 240 ml IV Total 1000 ml Output Urine Total 475 ml 700 ml # Bowel Movements 2 Result Diagram: 04/05/17 0417 04/05/17 0417 Objective Remarks GENERAL: Well-nourished, well-developed male patient, who appears older than his stated age. Patient does have tardive dyskinesia and lip smacking. He is alert, but not oriented. Currently in restraints, with Maguire in place CARDIOVASCULAR: Regular rate and rhythm without murmurs, gallops, or rubs. RESPIRATORY: Breath sounds equal bilaterally. No accessory muscle use. Lungs sounds are clear to auscultation. GASTROINTESTINAL: Abdomen soft, non-tender, nondistended. MUSCULOSKELETAL: No cyanosis, or edema. Patient moves all extremities without difficulty. BACK: Nontender without obvious deformity. No CVA tenderness. Neuro: Awake and alert however not oriented. Able to follow commands. Moves all 4 extremities well. A/P Assessment and Plan This is a 62-year-old male with past medical history significant for schizoaffective disorder, tardive dyskinesia, seizures, hyperlipidemia, hypertension, dementia and CVA. Being admitted for altered mental status with questionable UTI. Seen by psychiatry who recommends continuation of current psychotropic medications and aggressive medical treatments. Patient does not meet criteria for psychiatric admission. Discussed with Dr. Truong, PGY 2 Discharge Planning Pending improvement in mental status, possibly in the next day Problem List: (1) Altered mental status Status: Acute Plan: Patient with underlying dementia has been declining over the last 3 months. Rapid decline over the last week. Cause believed to be either UTI versus worsening since psychiatric disorder versus worsening dementia. MRI brain was limited by motion, but was negative for an acute process. Troponin within normal limits. * Admitted to observation * Psychiatry consulted and does not recommend inpatient admission * IV NS at 110 MLS per hour * Blood cultures no growth 2 days * See UTI plan below * Continue restraints * Continue Maguire (2) Urinary tract infection Status: Acute Plan: Urine is dark, hazy, trace blood, positive urobilinogen, many mucus. Questionable for urinary tract infection * Continue Rocephin 1 g IV every 24 hours - received 3 doses * Urine culture no growth in 48 hours - final report (3) Seizure Status: Chronic Plan: History of seizure activity. Currently on Depakote levels are therapeutic. * Continue home medication of Depakote * Continue clonazepam (4) Schizoaffective disorder Status: Chronic Plan: History of schizoaffective disorder with tardive dyskinesia * Continue home medication of duloxetine * Continue home medication of Trihexyphenidyl (5) HTN (hypertension) Status: Chronic Plan: Long-standing history of hypertension. 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
[2017-04-05] MEDS: METOPROLOL TARTRATE 25 MG TAB PO SCH ×3 (09:00→20:39)
[2017-04-05] MEDS: TRIHEXYPHENIDYL HCL 5 MG TAB PO SCH ×3 (10:24→18:30)
[2017-04-05] MEDS: MULTIVITAMINS/MINERALS THERAPEUTIC TAB PO SCH (10:25)
[2017-04-05] MEDS: DRONABINOL 5 MG CAP PO SCH (10:25)
[2017-04-05] MEDS: LACTULOSE SYRUP 20 GM/30 ML CUP PO SCH ×3 (10:25→18:30)
[2017-04-05] MEDS: DIVALPROEX SODIUM DELAYED RELEASE 250 MG TAB PO SCH ×2 (10:25→20:40)
[2017-04-05] MEDS: SODIUM CHLORIDE 0.9% FLUSH 10 ML FLUSH IV FLUSH SCH ×2 (10:26→20:40)
[2017-04-05] MEDS: ENOXAPARIN SODIUM 40 MG/0.4 ML SYRINGE SQ SCH (15:09)
[2017-04-05] MEDS: cefTRIAXone INJ 1,000 MG in SODIUM CHLORIDE 0.9% INJ 100 ML IV SCH (15:09)
[2017-04-05] MEDS: FENOFIBRATE 145 MG TAB PO SCH (20:40)
[2017-04-05] MEDS: DULoxetine HCl DR 60 MG CAP PO SCH (20:40)
[2017-04-05 21:04] LABS: MEAN CORPUSCULAR HGB CONC 36.1 % (32.0-36.0)
[2017-04-06 00:23] VITALS: PULSE 73; RESP 21; O2SAT 100
[2017-04-06 03:36] LABS: HEMATOCRIT 31.5 % (39.0-51.0); MEAN CELL VOLUME 90.5 FL (80.0-100.0); MEAN CORPUSCULAR HEMOGLOBIN 32.6 PG (27.0-34.0); PLATELET COUNT 147 TH/MM3 (150-450); RED BLOOD COUNT 3.48 MIL/MM3 (4.50-5.90); RED CELL DISTRIBUTION WIDTH 14.3 % (11.6-17.2); WHITE BLOOD COUNT 4.4 TH/MM3 (4.0-11.0)
[2017-04-06 03:38] LABS: REVIEW FLAG FINAL
[2017-04-06 04:12] LABS: BICARBONATE 28.6 MEQ/L (21.0-32.0); POTASSIUM 3.5 MEQ/L (3.5-5.1)
[2017-04-06] MEDS: LACTIC ACID (AMMONIUM LACTATE) 12% LOTION 225 GM BTL TOPICAL SCH ×3 (05:24→20:30)
[2017-04-06] MEDS: clonazePAM 1 MG TAB PO SCH ×3 (05:24→20:29)
[2017-04-06] MEDS ORDERED: diphenhydrAMINE HCL 25 MG CAP PO PRN (06:15)
[2017-04-06 07:40] VITALS: BP 95/54; PULSE 51; RESP 16; TEMP 97.5; O2SAT 97
--- NOTE | 2017-04-06 08:02 | HHI.FPPN ---
Subjective Remarks Patient was lying covered in bed with no restraints. Overnight the nurse said that he did pretty well last night and did not try to pull out his Pope. However, he did have a 2-3 seconds run of A. fib that resolved spontaneously. Patient stated "I don't feel good," but could not give any further details due to garbled speech. His diet was changed to softs yesterday but the patient will not eat much unless he is spoonfed. (BoboMiriam MD R1) Objective Vitals Vital Signs Date Time Temp Pulse Resp B/P Pulse Ox O2 Delivery O2 Flow Rate FiO2 04/06/17 07:40 97.5 51 16 95/54 97 04/06/17 00:23 73 21 100 04/05/17 21:00 70 04/05/17 19:14 92 22 109/71 100 04/05/17 16:00 98.2 60 18 102/62 100 04/05/17 10:00 74 04/05/17 09:37 97.6 72 20 128/76 94 I/O 04/05/17 04/05/17 04/05/17 04/06/17 04/06/17 04/06/17 06:59 14:59 22:59 06:59 14:59 22:59 Intake Total 240 ml 867 ml Output Total 700 ml Balance -460 ml 867 ml Intake Oral 240 ml 120 ml IV Total 747 ml Output Urine Total 700 ml # Voids 3 # Bowel Movements 2 (Miriam Holt MD R1) Result Diagram: 04/06/1731604/06/17316 Objective Remarks GENERAL: Well-nourished, well-developed male patient, who appears older than his stated age. Patient does have tardive dyskinesia and lip smacking. He is alert, but not oriented. CARDIOVASCULAR: Regular rate and rhythm without murmurs, gallops, or rubs. RESPIRATORY: Breath sounds equal bilaterally. No accessory muscle use. CTAB GASTROINTESTINAL: Abdomen soft, non-tender, nondistended. MUSCULOSKELETAL: No cyanosis, or edema. Patient moves all extremities without difficulty. BACK: Nontender without obvious deformity. No CVA tenderness. Neuro: Awake and alert however not oriented. Able to follow some commands. Moves all 4 extremities well. (EkoMiriam MD R1) A/P Assessment and Plan This is a 62-year-old male with past medical history significant for schizoaffective disorder, tardive dyskinesia, seizures, hyperlipidemia, hypertension, dementia and CVA. Being admitted for altered mental status with questionable UTI. Seen by psychiatry who recommends continuation of current psychotropic medications and aggressive medical treatments. Patient does not meet criteria for psychiatric admission. Patient does not have a next of kin listed on his face sheet and attempts to reach the person to notify have been unsuccessful so far. Discussed with Dr. Truong, PGY 2 Discharge Planning Possible discharge back to alf today (Miriam Holt MD R1) Attending Attestation Patient seen and examined. Case reviewed and discussed with the resident team. Agree with plan of care as discussed with me and documented in the resident note. In reviewing this patient's record no significant new medical problem was identified to account for his altered mental status. Reviewing his prehospital medication list indicates that he was on multiple medications that can cause alterations of cognitive function. During my evaluation today the patient will awaken and answer very simple questions. We will decrease his dose of clonazepam, stop his hydrocodone and place him on a scheduled dose of Tylenol for pain. Will stop hydroxyzine. We'll decrease his dose of trazodone. Will add orders for a dietary supplement such as ensure to be given after each meal. The patient will be discharged back to his long-term facility with the above noted changes. (Orlando John MD) Problem List: (1) Altered mental status Status: Acute Plan: Patient with underlying dementia has been declining over the last 3 months. Rapid decline over the last week. Cause believed to be either UTI versus worsening since psychiatric disorder versus worsening dementia. MRI brain was limited by motion, but was negative for an acute process. Troponin within normal limits. * Admitted to observation * Psychiatry was consulted and does not recommend inpatient admission * IV NS at 110 MLS per hour * Blood cultures no growth 3 days * See UTI plan below * DC restraints * DC Pope (2) Urinary tract infection Status: Acute Plan: Urine is dark, hazy, trace blood, positive urobilinogen, many mucus. Questionable for urinary tract infection * Continue Rocephin 1 g IV every 24 hours - received 4 doses - will discontinue after today's dose * Urine culture no growth in final report (3) Seizure Status: Chronic Plan: History of seizure activity. Currently on Depakote levels are therapeutic. * Continue home medication of Depakote * Continue clonazepam (4) Schizoaffective disorder Status: Chronic Plan: History of schizoaffective disorder with tardive dyskinesia * Continue home medication of duloxetine * Continue home medication of Trihexyphenidyl (5) HTN (hypertension) Status: Chronic Plan: Long-standing history of hypertension. * Continue home medication metoprolol, but will hold for SBP less than 120 or heart rate less than 60 (6) Nutrition, metabolism, and development symptoms Status: Acute Plan: Diet: Soft diet with assisted feeding Currently in restraints Neuro checks every 4 Vitals every 4 Monitor I's and O's Placed on senior litigation paralegal electrolytes and replace accordingly CODE STATUS: DNR (Miriam Holt MD R1) Problem Qualifiers (1) Altered mental status: Qualified Code: R41.82 - Altered mental status, unspecified altered mental status type (2) Urinary tract infection: Qualified Code: N30.01 - Acute cystitis with hematuria Miriam Holt MD R1 April 06, 2017 08:02 Orlando John MD April 07, 2017 12:57
[2017-04-06] MEDS: SODIUM CHLOR 0.9% 1000 ML INJ 1,000 ML IV SCH ×2 (09:15→18:21)
[2017-04-06] MEDS: SODIUM CHLORIDE 0.9% FLUSH 10 ML FLUSH IV FLUSH SCH ×2 (09:23→19:55)
[2017-04-06] MEDS: TRIHEXYPHENIDYL HCL 5 MG TAB PO SCH ×3 (09:34→19:22)
[2017-04-06] MEDS: LACTULOSE SYRUP 20 GM/30 ML CUP PO SCH ×3 (09:35→19:23)
[2017-04-06] MEDS: DRONABINOL 5 MG CAP PO SCH (09:35)
[2017-04-06] MEDS: DIVALPROEX SODIUM DELAYED RELEASE 250 MG TAB PO SCH ×2 (09:35→20:29)
[2017-04-06] MEDS: MULTIVITAMINS/MINERALS THERAPEUTIC TAB PO SCH (09:35)
[2017-04-06] MEDS: METOPROLOL TARTRATE 25 MG TAB PO SCH ×2 (09:52→19:55)
[2017-04-06 11:55] VITALS: BP 100/56; PULSE 57; RESP 18; TEMP 97.3; O2SAT 100
[2017-04-06] MEDS: cefTRIAXone INJ 1,000 MG in SODIUM CHLORIDE 0.9% INJ 100 ML IV SCH (14:31)
[2017-04-06] MEDS: ENOXAPARIN SODIUM 40 MG/0.4 ML SYRINGE SQ SCH (14:34)
--- NOTE | 2017-04-06 16:10 | HHI.DCPOC ---
Discharge Care Plan Diagnosis: (1) Tardive dyskinesia (2) Urinary tract infection (3) Altered mental status (4) Delirium due to another medical condition Goals to Promote Your Health * To prevent worsening of your condition and complications * To maintain your health at the optimal level Directions to Meet Your Goals Take your medications as prescribed Follow your dietary instruction Follow activity as directed Keep your appointments as scheduled Take your immunizations and boosters as scheduled If your symptoms worsen call your PCP, if no PCP go to Urgent Care Center or Emergency Room Smoking is Dangerous to Your Health. Avoid second hand smoke Call the 24-hour hour crisis hotline for domestic abuse at Miriam Holt MD R1 April 06, 2017 16:10
[2017-04-06 16:15] VITALS: BP 102/66; PULSE 56; RESP 16; TEMP 97.5; O2SAT 94
[2017-04-06] MEDS ORDERED: TYLE325T PO (16:23)
[2017-04-06] MEDS ORDERED: METO25TA6 PO (16:23)
[2017-04-06] MEDS ORDERED: TRAZ50TA12 PO (16:23)
[2017-04-06] MEDS ORDERED: TRIH5TAB2 PO (16:23)
[2017-04-06] MEDS ORDERED: CLON1 PO (16:23)
[2017-04-06 20:03] VITALS: BP 101/62; PULSE 55; RESP 18; TEMP 97.1; O2SAT 95
[2017-04-06] MEDS: FENOFIBRATE 145 MG TAB PO SCH (20:29)
[2017-04-06] MEDS: DULoxetine HCl DR 60 MG CAP PO SCH (20:30)
--- NOTE | 2017-04-06 21:54 | HHI.DS ---
Discharge Summary Admission Date April 02, 2017 at 13:49 Discharge Date: April 06, 2017 Admitting Diagnosis AMS, UTI (1) Altered mental status Diagnosis: Principal (2) Urinary tract infection Diagnosis: Principal (3) Seizure Diagnosis: Secondary (4) Schizoaffective disorder Diagnosis: Secondary (5) HTN (hypertension) Diagnosis: Secondary Brief History Patient is currently altered and unable to obtain history of present illness from the patient as the only question he can answer is his name History of present illness obtained from chart review This is a 62-year-old male with past medical history significant for schizoaffective disorder, tardive dyskinesia, seizures, hyperlipidemia, hypertension, dementia and CVA. He was brought in by EMS from his fdc at [facility] in [facility]. He has been having worsening dementia over the last 3 months but has been declining quickly over the last week. Today the altered mental status was severe enough they decided to bring him to the hospital. When asking him questions he can say his name, everything else is incoherent. Of note for seizures she is currently on Depakote, and levels are therapeutic CBC/BMP: 04/06/17 0317 04/06/17 0317 Significant Findings Laboratory Tests Test 04/04/17 04/05/17 04/06/17 05:02 04:17 03:17 Red Blood Count 3.46 MIL/MM3 3.31 MIL/MM3 3.48 MIL/MM3 (4.50-5.90) (4.50-5.90) (4.50-5.90) Hemoglobin 10.9 GM/DL 10.6 GM/DL 11.3 GM/DL (13.0-17.0) (13.0-17.0) (13.0-17.0) Hematocrit 31.7 % 30.1 % 31.5 % (39.0-51.0) (39.0-51.0) (39.0-51.0) Platelet Count 124 TH/MM3 129 TH/MM3 147 TH/MM3 (150-450) (150-450) (150-450) Calcium Level 8.3 MG/DL 8.1 MG/DL (8.5-10.1) (8.5-10.1) Blood Urea Nitrogen 5 MG/DL (7-18) 2 MG/DL (7-18) Creatinine 0.55 MG/DL 0.54 MG/DL (0.60-1.30) (0.60-1.30) Mean Corpuscular Hemoglobin 36.1 % Concent (32.0-36.0) PE at Discharge GENERAL: Well-nourished, well-developed male patient, who appears older than his stated age. Patient does have tardive dyskinesia and lip smacking. He is alert, but not oriented. CARDIOVASCULAR: Regular rate and rhythm without murmurs, gallops, or rubs. RESPIRATORY: Breath sounds equal bilaterally. No accessory muscle use. CTAB GASTROINTESTINAL: Abdomen soft, non-tender, nondistended. MUSCULOSKELETAL: No cyanosis, or edema. Patient moves all extremities without difficulty. BACK: Nontender without obvious deformity. No CVA tenderness. Neuro: Awake and alert however not oriented. Able to follow some commands. Moves all 4 extremities well. Hospital Course This is a 62-year-old male with past medical history significant for schizoaffective disorder, tardive dyskinesia, seizures, hyperlipidemia, hypertension, dementia and CVA. He was admitted for altered mental status and psychiatry was consulted who did not recommend inpatient psychiatric admission. In addition, he was found to have a UTI that was treated with IV Rocephin. The patient's altered mental status is most likely related to mental decline secondary to dementia. Prior to discharge, his medication regimen was adjusted to reduce his overall sedation. Please see the discharge medication documentation for more information on these medication changes during this admission. Pt Condition on Discharge: Stable Discharge Disposition: Discharge to SNF Discharge Instructions DIET: Follow Instructions for: Heart Healthy Diet, Soft Diet, Pureed Diet Additional Diet Instructions: Please encourage 1 can of Ensure after each meal - three times a day. He will need to be spoonfed. Activities you can perform: See Additionl Instruction Other Activity Instructions: Pt requires assistance with mobility and ADLS for safety Follow up Referrals: PCP Follow-up - 1 Week New Orders: BASIC METABOLIC PROF - 04/10/17 CBC WITH DIFF - 04/10/17 New Medications: Acetaminophen (Tylenol) 325 Mg Tab 650 MG PO TID #90 Ref 0 TAB Metoprolol Succinate ER 24 HR (Metoprolol Succinate ER 24 HR) 25 Mg Tab 25 MG PO DAILY #30 Ref 0 TAB Trazodone (Trazodone) 50 Mg Tab 50 MG PO HS Control Depression #30 Ref 0 TAB Clonazepam (Klonopin) 1 Mg Tab 1 MG PO Q8HR #90 TAB Trihexyphenidyl (Trihexyphenidyl) 5 Mg Tab 5 MG PO BID #60 TAB Continued Medications: Divalproex DR (Depakote DR) 250 Mg Tabdr 750 MG PO BID Control Seizures #60 Ref 0 TAB Multiple Vitamins W/ Minerals (Multivitamin Men) 1 Tab Tab 1 TAB PO DAILY Nutritional Supplement Ref 0 TAB Discontinued Medications: Clonazepam (Klonopin) 2 Mg Tab 2 MG PO Q8HR Seizure Control #90 Ref 0 TAB Dronabinol (Marinol) 5 Mg Cap 5 MG PO DAILY Appetite Stimulant Ref [address] (Cymbalta DR) 60 Mg Capdr 120 MG PO HS BIPOLAR D/O #30 Ref 0 CAP Fenofibrate (Fenofibrate) 160 Mg Tab 160 MG PO HS HYPERIPIDEMIA #30 Ref 0 TAB Hydrocodone-Acetaminophen (Lortab) 10-325 Mg Tab 1 TAB PO Q4H PRN PAIN Ref 0 TAB Hydroxyzine HCl (Hydroxyzine HCl) 25 Mg Tab 25 MG PO Q6HR PRN ITCHING Ref 0 TAB Ketoconazole Topical Shampoo (Nizoral Topical Shampoo) 2% Sham 1 APPLIC TOPICAL MOWEFR Apply to scalp every Monday,Monday and Monday for seborrheic dermatitis Fungal Infection Ref 0 BOTTLE Lactic Acid (Ammonium Lactate) (Lac-Hydrin) 12% Lotn 1 APPLIC TOPICAL Q8HR Apply to affected area(s) every shift for rash #225 Ref 0 ML Lactulose (Encephalopathy) Liq (Enulose Liq) 10 Gm/15 Ml Soln 20 GM PO TID High Ammonia Level Metoprolol Tartrate (Metoprolol Tartrate) 25 Mg Tab 12.5 MG PO BID Hold if SBP <120 or HR <60 Blood Pressure Management #60 Ref 0 TAB Trazodone (Trazodone) 150 Mg Tab 150 MG PO HS Insomnia #30 Ref 0 TAB Trihexyphenidyl (Trihexyphenidyl) 5 Mg Tab 5 MG PO TID Tremors #90 Ref 0 TAB Miriam Holt MD R1 April 06, 2017 21:54
== END 2017-04-06 21:00 | disposition short-term general hospital (02) ==
LOC: NEPC 11:26 → NEDA 13:49 → NEPGCP 15:21
PROVIDERS: ADMIT Family Medicine; ATTEND Family Medicine
DX: R41.82 Altered mental status, unspecified (principal); N39.0 Urinary tract infection, site not specified; E78.5 Hyperlipidemia, unspecified; I10 Essential (primary) hypertension; F25.9 Schizoaffective disorder, unspecified; G40.909 Epilepsy, unspecified, not intractable, without status epilepticus; F03.90 Unspecified dementia, unspecified severity, without behavioral disturbance, psychotic disturbance, mood disturbance, and anxiety; G24.01 Drug induced subacute dyskinesia; K21.9 Gastro-esophageal reflux disease without esophagitis; Z66 Do not resuscitate; I25.2 Old myocardial infarction; I25.10 Atherosclerotic heart disease of native coronary artery without angina pectoris; H91.93 Unspecified hearing loss, bilateral; F31.9 Bipolar disorder, unspecified; F41.9 Anxiety disorder, unspecified; Z86.73 Personal history of transient ischemic attack (TIA), and cerebral infarction without residual deficits; Z87.891 Personal history of nicotine dependence
CPT/HCPCS: 51702; 70450; 70551; 71010; 76937; 80048; 80053; 80164; 81001; 82140; 82550; 83605; 83735; 84100; 84443; 84484; 85025; 85027; 85610; 85730; 87040; 87086; 93005; 96361; 96374; 97110; 97116; 97162; 97530; 99285; G0378; G8987; G8988; J0696; J1200; J1650; J2060; J7030; J7040

== ENCOUNTER 2017-12-24 23:01 | Emergency (ER) | payer MEDICARE, OTHER ==
[~2017-12-24 23:01] MED LIST changes: -BUSP15TA PO; +CLON1 PO; -CYMB60CA PO; +DEPA250T2 PO; -DEPA500T3 PO; -FENO160T PO; -KLON2TAB PO; +METO1TAB42 PO; +MULT1TAB85 PO; -TRAZ100 PO; +TRAZ50TA12 PO; -TRIH5 PO; +TRIH5TAB2 PO; +TYLE325T PO
[2017-12-24 23:07] VITALS: BP 116/77; PULSE 65; RESP 18; TEMP 98.7
[2017-12-24] MEDS ORDERED: SODIUM CHLORIDE 0.9% FLUSH 10 ML FLUSH IV FLUSH PRN (23:15)
[2017-12-24 23:19] VITALS: O2SAT 97
--- NOTE | 2017-12-24 23:38 | PD ---
HPI Chief Complaint: Medical Clearance Time Seen by Provider: 23:13 Travel History International Travel<30 days: No Contact w/Intl Traveler<30days: No Traveled to known affect area: No History of Present Illness HPI 62-year-old male brought in by PD from his ALS for evaluation of alcohol intoxication. Patient admits to drinking alcohol tonight while watching the Super Bowl. There were several empty beer cans in his room. Apparently he was aggressive towards staff at the facility. Chart review shows that the patient has history of schizoaffective disorder. He denies illicit drug use. Denies any physical complaints. PFSH Past Medical History Arthritis: No Asthma: No Autoimmune Disease: No Blood Disorders: No Bipolar Disorder: Yes Anxiety: Yes Depression: No Heart Rhythm Problems: No Cancer: No Cardiac Catheterization: No Cardiovascular Problems: Yes (ATHEROSCLEROTIC HEART DISEASE) High Cholesterol: Yes Chemotherapy: No Chest Pain: Yes (HX- STRESS TEST) Congestive Heart Failure: No COPD: No Cerebrovascular Accident: Yes Coronary Artery Disease: Yes Diabetes: No Diminished Hearing: Yes (both ears) Endocrine: No Gastrointestinal Disorders: Yes (DYSPHAGIA) GERD: Yes (GERD) Genitourinary: No Headaches: Yes Hepatitis: No Hiatal Hernia: No Hypertension: Yes Immune Disorder: No Implanted Vascular Access Dvce: No Insomnia: Yes Kidney Stones: No Musculoskeletal: No Neurologic: Yes Psychiatric: Yes (BIPOLAR, SCHITZOAFFECTIVE D/O, MAJOR DEPRESSIVE DISORDER) Reproductive: No Respiratory: No Immunizations Current: Yes Migraines: No Myocardial Infarction: Yes (2012) Radiation Therapy: No Renal Failure: No Seizures: Yes (UNSPECIFIED CONVULSIONS) Sickle Cell Disease: No Sleep Apnea: No Thyroid Disease: No Ulcer: Yes Tetanus Vaccination: Unknown Influenza Vaccination: Yes PNEUMOCCOCAL Vaccine (Year): 2010 Past Surgical History Abdominal Surgery: Yes (LEFT INGUINAL HERNIA) AICD: No Appendectomy: No Arteriovenous Shunt: No Cardiac Surgery: No Cholecystectomy: No Coronary Artery Bypass Graft: No Ear Surgery: No Endocrine Surgery: No Eye Surgery: No Genitourinary Surgery: No Gynecologic Surgery: No Insulin Pump: No Joint Replacement: No Oral Surgery: Yes Pacemaker: No Thoracic Surgery: No Other Surgery: Yes (PATIENT DENIED HAVING SURGERY IN PAST) Social History Alcohol Use: Yes Tobacco Use: Yes (3-4 CIGS A DAY ) Substance Use: No Allergies-Medications (Allergen,Severity, Reaction): Coded Allergies: No Known Allergies (Verified , 12/02/15) Reported Meds & Prescriptions Reported Meds & Active Scripts Active Trihexyphenidyl (Trihexyphenidyl HCl) 5 Mg Tab 5 Mg PO BID Metoprolol Succinate ER 24 HR (Metoprolol Succinate) 25 Mg Tab 25 Mg PO DAILY Klonopin (Clonazepam) 1 Mg Tab 1 Mg PO Q8HR Reported Trazodone (Trazodone HCl) 50 Mg Tab 75 Mg PO HS Zestril (Lisinopril) 2.5 Mg Tab 30 Mg PO DAILY Nabumetone 500 Mg Tab 500 Mg PO BID [id number] 50-325-40 (Butalbital/Aspirin/Caffeine) 50 Mg-325 Mg-40 Mg Tablet PO BID Divalproex DR (Divalproex Sodium) 500 Mg Tabdr 1,000 Mg PO BID Tylenol (Acetaminophen) 325 Mg Tab 650 Mg PO QID Lactulose Liq (Lactulose) 10 Gm/15 Ml Soln 30 Ml PO TID Trihexyphenidyl (Trihexyphenidyl HCl) 2 Mg Tab 2 Mg PO BID Lansoprazole 30 Mg Capdr 30 Mg PO BID Duloxetine DR (Duloxetine HCl) 60 Mg Capdr 60 Mg PO BID [multivitamin] 1 PO DAILY Aspirin 81 Mg Chew 81 Mg CHEW DAILY Review of Systems Except as stated in HPI: all other systems reviewed are Neg Physical Exam Narrative GENERAL: Well-developed, well-nourished, awake, alert, appears intoxicated, no apparent distress. SKIN: Focused skin assessment warm/dry. HEAD: Atraumatic. Normocephalic. EYES: Pupils equal and round. No scleral icterus. No injection or drainage. ENT: No nasal bleeding or discharge. Mucous membranes pink and moist. NECK: Trachea midline. No JVD. CARDIOVASCULAR: Regular rate and rhythm. No murmur appreciated. RESPIRATORY: No accessory muscle use. Clear to auscultation. Breath sounds equal bilaterally. GASTROINTESTINAL: Abdomen soft, non-tender, nondistended. MUSCULOSKELETAL: No obvious deformities. No clubbing. No cyanosis. No edema. NEUROLOGICAL: Awake and alert. No obvious cranial nerve deficits. Motor grossly within normal limits. Normal speech. PSYCHIATRIC: Intoxicated Data Data Last Documented VS Vital Signs Date Time Temp Pulse Resp B/P (MAP) Pulse Ox O2 Delivery O2 Flow Rate FiO2 2//18 03:08 12/25/17 02:12 70 20 96 12/24/17 23:19 Room Air 12/24/17 23:07 98.7 Orders Orders Complete Blood Count With Diff (12/24/17 23:13) Comprehensive Metabolic Panel (12/24/17 23:13) Prothrombin Time / Inr (Pt) (12/24/17 23:13) Act Partial Throm Time (Ptt) (12/24/17 23:13) Iv Access Insert/Monitor (12/24/17 23:13) Ecg Monitoring (12/24/17 23:13) Oximetry (12/24/17 23:13) Sodium Chloride 0.9% Flush (Ns Flush) (12/24/17 23:15) Alcohol (Ethanol) (12/24/17 23:13) Drug Screen, Random Urine (12/24/17 23:13) Ed Discharge Order (12/25/17 03:02) Labs Laboratory Tests Test 12/24/17 23:33 12/25/17 00:45 White Blood Count 6.0 TH/MM3 Red Blood Count 3.77 MIL/MM3 Hemoglobin 13.1 GM/DL Hematocrit 36.1 % Mean Corpuscular Volume 95.5 FL Mean Corpuscular Hemoglobin 34.6 PG Mean Corpuscular Hemoglobin Concent 36.2 % Red Cell Distribution Width 13.1 % Platelet Count 267 TH/MM3 Mean Platelet Volume 7.6 FL Neutrophils (%) (Auto) 56.3 % Lymphocytes (%) (Auto) 30.9 % Monocytes (%) (Auto) 7.7 % Eosinophils (%) (Auto) 3.8 % Basophils (%) (Auto) 1.3 % Neutrophils # (Auto) 3.4 TH/MM3 Lymphocytes # (Auto) 1.8 TH/MM3 Monocytes # (Auto) 0.5 TH/MM3 Eosinophils # (Auto) 0.2 TH/MM3 Basophils # (Auto) 0.1 TH/MM3 CBC Comment AUTO DIFF Differential Comment AUTO DIFF CONFIRMED Platelet Estimate NORMAL Platelet Morphology Comment NORMAL Red Cell Morphology Comment NORMAL Prothrombin Time 10.4 SEC Prothromb Time International Ratio 1.0 RATIO Activated Partial Thromboplast Time 28.7 SEC Blood Urea Nitrogen 10 MG/DL Creatinine 0.60 MG/DL Random Glucose 79 MG/DL Total Protein 6.8 GM/DL Albumin 3.6 GM/DL Calcium Level 8.2 MG/DL Alkaline Phosphatase 74 U/L Aspartate Amino Transf (AST/SGOT) 26 U/L Alanine Aminotransferase (ALT/SGPT) 20 U/L Total Bilirubin 0.4 MG/DL Sodium Level 134 MEQ/L Potassium Level 4.0 MEQ/L Chloride Level 101 MEQ/L Carbon Dioxide Level 20.7 MEQ/L Anion Gap 12 MEQ/L Estimat Glomerular Filtration Rate 137 ML/MIN Ethyl Alcohol Level 137 MG/DL Urine Opiates Screen NEG Urine Barbiturates Screen POS Urine Amphetamines Screen NEG Urine Benzodiazepines Screen NEG Urine Cocaine Screen NEG Urine Cannabinoids Screen NEG MDM Medical Decision Making Medical Screen Exam Complete: Yes Emergency Medical Condition: Yes Differential Diagnosis Alcohol intoxication, drug intoxication, metabolic abnormality, tardive dyskinesia Narrative Course Vital signs reviewed and are within normal limits. CBC is essentially unremarkable. CMP is unremarkable. Alcohol level is 137. The patient will be allowed to sleep off his intoxication in the emergency department and once clinically sober will be discharged back to his living facility. 2:45 AM: The patient reports that he feels well and is demanding to be discharged back to his living facility. He appears to be sober and was provided a cab pass to take back to his facility. Diagnosis Primary Impression: Alcohol intoxication Qualified Codes: F10.920 - Alcohol use, unspecified with intoxication, uncomplicated Referrals: Primary Care Physician 3 days [facility] days Additional Instructions: Follow-up with a primary care physician this week. Follow-up with [facility] for assistance with alcohol abuse this week. Disposition: 03 DISCHARGE TO SNF Condition: Stable Jack Christopher MD Dec 24, 2017 23:38
[2017-12-24 23:53] LABS: AUTOMATED NEUTROPHIL # 3.4 TH/MM3 (1.8-7.7); BASOPHIL # 0.1 TH/MM3 (0-0.2); BASOPHIL % 1.3 % (0.0-2.0); EOSINOPHIL # 0.2 TH/MM3 (0-0.4); EOSINOPHIL % 3.8 % (0.0-4.0); HEMATOCRIT 36.1 % (39.0-51.0); HEMOGLOBIN 13.1 GM/DL (13.0-17.0); LYMPH % 30.9 % (9.0-44.0); LYMPHOCYTE # 1.8 TH/MM3 (1.0-4.8); MEAN CELL VOLUME 95.5 FL (80.0-100.0); MEAN CORPUSCULAR HEMOGLOBIN 34.6 PG (27.0-34.0); MEAN PLATELET VOLUME 7.6 FL (7.0-11.0); MONO % 7.7 % (0.0-8.0); MONOCYTE # 0.5 TH/MM3 (0-0.9); NEUT % 56.3 % (16.0-70.0); PLATELET COUNT 267 TH/MM3 (150-450); RED BLOOD COUNT 3.77 MIL/MM3 (4.50-5.90); RED CELL DISTRIBUTION WIDTH 13.1 % (11.6-17.2)
[2017-12-24] MEDS ORDERED: ASPI-516 CHEW (23:54)
[2017-12-24] MEDS ORDERED: multivitamin PO (23:54)
[2017-12-25] MEDS ORDERED: TRIH2 PO (00:03)
[2017-12-25] MEDS ORDERED: NABU1TAB37 PO (00:03)
[2017-12-25] MEDS ORDERED: LISI-588 PO (00:03)
[2017-12-25] MEDS ORDERED: LANS30CA PO (00:03)
[2017-12-25] MEDS ORDERED: LISI30TA4 PO (00:03)
[2017-12-25] MEDS ORDERED: TYLE325T PO (00:03)
[2017-12-25] MEDS ORDERED: LACT10SO PO (00:03)
[2017-12-25] MEDS ORDERED: BUTA1TAB44 PO (00:03)
[2017-12-25] MEDS ORDERED: DULO1CAP3 PO (00:03)
[2017-12-25] MEDS ORDERED: DIVA500T PO (00:03)
[2017-12-25 00:04] LABS: PROTHROMBIN TIME - PATIENT 10.4 SEC (9.8-11.6)
[2017-12-25 00:15] LABS: MEAN CORPUSCULAR HGB CONC 36.2 % (32.0-36.0)
[2017-12-25] MEDS ORDERED: TRAZ50TA12 PO (00:16)
[2017-12-25 00:21] LABS: ALBUMIN 3.6 GM/DL (3.4-5.0); ALT (GPT) 20 U/L (12-78); AST (GOT) 26 U/L (15-37); BICARBONATE 20.7 MEQ/L (21.0-32.0); BLOOD UREA NITROGEN 10 MG/DL (7-18); CALCIUM 8.2 MG/DL (8.5-10.1); CHLORIDE 101 MEQ/L (98-107); GLOMERULAR FILTRATION RATE 137 ML/MIN (>89); GLUCOSE,RANDOM 79 MG/DL (74-106); SODIUM (NA) 134 MEQ/L (136-145)
[2017-12-25 00:23] LABS: ALKALINE PHOSPHATASE 74 U/L (45-117); TOTAL BILIRUBIN ADULT 0.4 MG/DL (0.2-1.0); TOTAL PROTEIN 6.8 GM/DL (6.4-8.2)
[2017-12-25 02:12] VITALS: PULSE 70; RESP 20; O2SAT 96
[2017-12-26] MEDS ORDERED: MULTTAB67 PO (10:36)
== END 2017-12-25 03:10 ==
LOC: NEPE 23:01
DX: F10.129 Alcohol abuse with intoxication, unspecified (principal); F19.90 Other psychoactive substance use, unspecified, uncomplicated; F25.9 Schizoaffective disorder, unspecified; F31.9 Bipolar disorder, unspecified; F41.9 Anxiety disorder, unspecified; E78.00 Pure hypercholesterolemia, unspecified; I25.10 Atherosclerotic heart disease of native coronary artery without angina pectoris; I10 Essential (primary) hypertension; Z79.899 Other long term (current) drug therapy
CPT/HCPCS: 80053; 80307; 85025; 85610; 85730; 99283

== ENCOUNTER 2018-03-10 14:24 | Emergency (ER) | payer MEDICARE, OTHER ==
[~2018-03-10] VITALS: Ht 172.7 cm; Wt 80.0 kg
[~2018-03-10 14:24] MED LIST changes: +ASPI-516 CHEW; +BUTA1TAB44 PO; -DEPA250T2 PO; +DIVA500T PO; +DULO1CAP3 PO; +LACT10SO PO; +LANS30CA PO; +LISI-588 PO; -MULT1TAB85 PO; +MULTTAB67 PO; +NABU1TAB37 PO; +TRIH2 PO
[2018-03-10] MEDS ORDERED: SODIUM CHLOR 0.9% 1000 ML INJ 1,000 ML IV SCH (15:04)
[2018-03-10] MEDS ORDERED: SODIUM CHLORIDE 0.9% FLUSH 10 ML FLUSH IV FLUSH PRN (15:15)
[2018-03-10] MEDS ORDERED: THIAMINE INJ 100 MG in SODIUM CHLORIDE 0.9% INJ 100 ML IV ONE (15:15)
[2018-03-10] MEDS ORDERED: LACTULOSE SYRUP 20 GM/30 ML CUP PO ONE (15:15)
--- NOTE | 2018-03-10 15:33 | PD ---
HPI Chief Complaint: Alcohol/Drug Intoxication Time Seen by Provider: 14:53 Travel History International Travel<30 days: No Contact w/Intl Traveler<30days: No Traveled to known affect area: No History of Present Illness HPI 63-year-old male brought in under the [employer] act for apparent intoxication. Patient has history of this in the past. Patient has history of tardive dyskinesia as well as elevated ammonia levels in the past. Patient denies drinking any alcohol today. Patient denies headache, or other acute complaints. Patient states he sees a "brain Dr." who recently took him off lactulose, and gave him a pill instead. Patient cannot remember his meds or his doctors. He is a very poor historian is very uncooperative. PFSH Past Medical History Arthritis: No Asthma: No Autoimmune Disease: No Blood Disorders: No Bipolar Disorder: Yes Anxiety: Yes Depression: No Heart Rhythm Problems: No Cancer: Yes (says "i have tumors in my neck and shoulders") Cardiac Catheterization: No Cardiovascular Problems: Yes (ATHEROSCLEROTIC HEART DISEASE) High Cholesterol: Yes Chemotherapy: No Chest Pain: Yes (HX- STRESS TEST) Congestive Heart Failure: No COPD: No Cerebrovascular Accident: Yes Coronary Artery Disease: Yes Diabetes: No Diminished Hearing: Yes (both ears) Endocrine: No Gastrointestinal Disorders: Yes (DYSPHAGIA) GERD: Yes (GERD) Genitourinary: No Headaches: Yes Hepatitis: No Hiatal Hernia: No Hypertension: Yes Immune Disorder: No Implanted Vascular Access Dvce: No Insomnia: Yes Kidney Stones: No Musculoskeletal: No Neurologic: Yes Psychiatric: Yes (BIPOLAR, SCHITZOAFFECTIVE D/O, MAJOR DEPRESSIVE DISORDER) Reproductive: No Respiratory: No Immunizations Current: Yes Migraines: No Myocardial Infarction: Yes (2012) Radiation Therapy: No Renal Failure: No Seizures: Yes (UNSPECIFIED CONVULSIONS) Sickle Cell Disease: No Sleep Apnea: No Thyroid Disease: No Ulcer: Yes PNEUMOCCOCAL Vaccine (Year): 2010 ?: Not Past Surgical History Abdominal Surgery: Yes (LEFT INGUINAL HERNIA) AICD: No Appendectomy: No Arteriovenous Shunt: No Cardiac Surgery: No Cholecystectomy: No Coronary Artery Bypass Graft: No Ear Surgery: No Endocrine Surgery: No Eye Surgery: No Genitourinary Surgery: No Gynecologic Surgery: No Insulin Pump: No Joint Replacement: No Oral Surgery: Yes Pacemaker: No Thoracic Surgery: No Other Surgery: Yes (PATIENT DENIED HAVING SURGERY IN PAST) Social History Alcohol Use: Yes Tobacco Use: Yes (3-4 CIGS A DAY ) Substance Use: No (kierra) Allergies-Medications (Allergen,Severity, Reaction): Coded Allergies: No Known Allergies (Verified Adverse Reaction, Unknown, 03/10/18) Reported Meds & Prescriptions Reported Meds & Active Scripts Active Trihexyphenidyl (Trihexyphenidyl HCl) 5 Mg Tab 5 Mg PO BID Metoprolol Succinate ER 24 HR (Metoprolol Succinate) 25 Mg Tab 25 Mg PO DAILY Klonopin (Clonazepam) 1 Mg Tab 1 Mg PO Q8HR Reported Multiple Vitamin 1 Tab 1 Tab PO DAILY Trazodone (Trazodone HCl) 50 Mg Tab 75 Mg PO HS Zestril (Lisinopril) 2.5 Mg Tab 30 Mg PO DAILY Nabumetone 500 Mg Tab 500 Mg PO BID Tbrbyk-Ytkhdck-Ghrqt 50-325-40 (Butalbital/Aspirin/Caffeine) 50 Mg-325 Mg-40 Mg Tablet PO BID Divalproex DR (Divalproex Sodium) 500 Mg Tabdr 1,000 Mg PO BID Tylenol (Acetaminophen) 325 Mg Tab 650 Mg PO QID Lactulose Liq (Lactulose) 10 Gm/15 Ml Soln 30 Ml PO TID Trihexyphenidyl (Trihexyphenidyl HCl) 2 Mg Tab 2 Mg PO BID Lansoprazole 30 Mg Capdr 30 Mg PO BID Duloxetine DR (Duloxetine HCl) 60 Mg Capdr 60 Mg PO BID Aspirin 81 Mg Chew 81 Mg CHEW DAILY Review of Systems ROS Limitations: Uncooperative, Poor Historian General / Constitutional: No: Fever Eyes: No: Visual changes HENT: No: Headaches Cardiovascular: No: Chest Pain or Discomfort Respiratory: No: Shortness of Breath Gastrointestinal: No: Abdominal Pain Genitourinary: No: Dysuria Musculoskeletal: No: Pain Skin: No Rash Neurologic: No: Weakness Psychiatric: No: Depression Endocrine: No: Polydipsia Hematologic/Lymphatic: No: Easy Bruising Physical Exam Exam Limitations: Poor Historian, Uncooperative Narrative GENERAL: Patient appears alert and oriented 3. He shows obvious signs of tar dive dyskinesia. SKIN: Warm and dry. Normal color. Normal turgor. No signs of trauma. HEAD: Atraumatic. Normocephalic. EYES: Pupils equal and round. No scleral icterus. No injection or drainage. ENT: No nasal bleeding or discharge. Mucous membranes pink and moist. Patient is upper and lower dentures. Pharynx is clear. Airways patent NECK: Trachea midline. Supple nontender CARDIOVASCULAR: Regular rate and rhythm. RESPIRATORY: No accessory muscle use. Clear to auscultation. Breath sounds equal bilaterally. GASTROINTESTINAL: Abdomen soft, non-tender, nondistended. Hepatic and splenic margins not palpable. MUSCULOSKELETAL: Extremities without clubbing, cyanosis, or edema. No obvious deformities. NEUROLOGICAL: Awake and alert. No obvious cranial nerve deficits. Motor grossly within normal limits. Five out of 5 muscle strength in the arms and legs. Normal speech. PSYCHIATRIC: Appropriate mood and affect; insight and judgment normal. Data Data Last Documented VS Vital Signs Date Time Temp Pulse Resp B/P (MAP) Pulse Ox O2 Delivery O2 Flow Rate FiO2 03/10/18 15:39 73 18 147/83 (104) 97 Room Air Orders Orders Complete Blood Count With Diff (03/10/18 15:04) Comprehensive Metabolic Panel (03/10/18 15:04) Lactic Acid (03/10/18 15:04) Iv Access Insert/Monitor (03/10/18 15:04) Ecg Monitoring (03/10/18 15:04) Oximetry (03/10/18 15:04) Sodium Chlor 0.9% 1000 Ml Inj (Ns 1000 M (03/10/18 15:04) Sodium Chloride 0.9% Flush (Ns Flush) (03/10/18 15:15) Ammonia (03/10/18 15:04) Prothrombin Time / Inr (Pt) (03/10/18 15:04) Act Partial Throm Time (Ptt) (03/10/18 15:04) Thiamine Inj (Thiamine Inj) (03/10/18 15:15) Lactulose Liq (Lactulose Liq) (03/10/18 15:15) Alcohol (Ethanol) (03/10/18 15:30) Labs Laboratory Tests Test 03/10/18 15:30 White Blood Count 5.6 TH/MM3 Red Blood Count 3.76 MIL/MM3 Hemoglobin 13.0 GM/DL Hematocrit 37.2 % Mean Corpuscular Volume 98.9 FL Mean Corpuscular Hemoglobin 34.7 PG Mean Corpuscular Hemoglobin Concent 35.1 % Red Cell Distribution Width 12.9 % Platelet Count 200 TH/MM3 Mean Platelet Volume 7.6 FL Neutrophils (%) (Auto) 61.2 % Lymphocytes (%) (Auto) 27.2 % Monocytes (%) (Auto) 8.7 % Eosinophils (%) (Auto) 1.9 % Basophils (%) (Auto) 1.0 % Neutrophils # (Auto) 3.4 TH/MM3 Lymphocytes # (Auto) 1.5 TH/MM3 Monocytes # (Auto) 0.5 TH/MM3 Eosinophils # (Auto) 0.1 TH/MM3 Basophils # (Auto) 0.1 TH/MM3 CBC Comment DIFF FINAL Differential Comment Prothrombin Time 10.7 SEC Prothromb Time International Ratio 1.1 RATIO Activated Partial Thromboplast Time 27.1 SEC Blood Urea Nitrogen 14 MG/DL Creatinine 0.66 MG/DL Random Glucose 85 MG/DL Total Protein 6.3 GM/DL Albumin 3.1 GM/DL Calcium Level 8.0 MG/DL Alkaline Phosphatase 112 U/L Aspartate Amino Transf (AST/SGOT) 24 U/L Alanine Aminotransferase (ALT/SGPT) 28 U/L Total Bilirubin 0.3 MG/DL Sodium Level 142 MEQ/L Potassium Level 4.1 MEQ/L Chloride Level 110 MEQ/L Carbon Dioxide Level 27.0 MEQ/L Anion Gap 5 MEQ/L Estimat Glomerular Filtration Rate 122 ML/MIN Lactic Acid Level 1.2 mmol/L Ammonia 36 MCMOL/L Ethyl Alcohol Level LESS THAN 3 MG/DL MDM Medical Decision Making Medical Screen Exam Complete: Yes Emergency Medical Condition: Yes Medical Record Reviewed: Yes Differential Diagnosis Possible EtOH intoxication. Encephalopathy secondary to pneumonia. Electrolyte abnormality. Narrative Course Patient is medically stable. Labs are drawn including CBC, CMP, PT PTT INR, and ammonia level. CBC is unremarkable except for RBCs of 3.76, hematocrit is 37.2. Coagulation studies are unremarkable. Chemistries are remarkable only for chloride of 110, calcium is 8.0, total protein 6.3, albumin is 3.1. Ammonia level is elevated at 36 however this is typical for this patient's baseline from previous labs. Lactic acid is 1.2 per Serum alcohol is less than 3. Patient is medically stable for discharge. Diagnosis Primary Impression: Delirium due to another medical condition Additional Impression: Tardive dyskinesia Patient Instructions: General Instructions Additional Instructions: CBC is unremarkable except for RBCs of 3.76, hematocrit is 37.2. Coagulation studies are unremarkable. Chemistries are remarkable only for chloride of 110, calcium is 8.0, total protein 6.3, albumin is 3.1. Ammonia level is elevated at 36 however this is typical for this patient's baseline from previous labs. Lactic acid is 1.2 per Serum alcohol is less than 3. Patient is medically stable for discharge. Med/Other Pt SpecificInfo: No Change to Meds Disposition: 01 DISCHARGE HOME Condition: Stable Paul Posey Mar 10, 2018 15:33
[2018-03-10 15:39] VITALS: BP 147/83; PULSE 73; RESP 18; O2SAT 97
[2018-03-10 15:59] LABS: AUTOMATED NEUTROPHIL # 3.4 TH/MM3 (1.8-7.7); BASOPHIL # 0.1 TH/MM3 (0-0.2); EOSINOPHIL # 0.1 TH/MM3 (0-0.4); EOSINOPHIL % 1.9 % (0.0-4.0); HEMATOCRIT 37.2 % (39.0-51.0); LYMPH % 27.2 % (9.0-44.0); LYMPHOCYTE # 1.5 TH/MM3 (1.0-4.8); MEAN CELL VOLUME 98.9 FL (80.0-100.0); MEAN CORPUSCULAR HEMOGLOBIN 34.7 PG (27.0-34.0); MEAN CORPUSCULAR HGB CONC 35.1 % (32.0-36.0); MEAN PLATELET VOLUME 7.6 FL (7.0-11.0); MONO % 8.7 % (0.0-8.0); MONOCYTE # 0.5 TH/MM3 (0-0.9); NEUT % 61.2 % (16.0-70.0); PLATELET COUNT 200 TH/MM3 (150-450); RED BLOOD COUNT 3.76 MIL/MM3 (4.50-5.90); RED CELL DISTRIBUTION WIDTH 12.9 % (11.6-17.2); WHITE BLOOD COUNT 5.6 TH/MM3 (4.0-11.0)
[2018-03-10 16:07] LABS: INTERNATIONAL NORMALIZED RATIO 1.1 RATIO; PROTHROMBIN TIME - PATIENT 10.7 SEC (9.8-11.6)
[2018-03-10 16:12] LABS: ALBUMIN 3.1 GM/DL (3.4-5.0); AST (GOT) 24 U/L (15-37); BLOOD UREA NITROGEN 14 MG/DL (7-18); CHLORIDE 110 MEQ/L (98-107); CREATININE 0.66 MG/DL (0.60-1.30); GLOMERULAR FILTRATION RATE 122 ML/MIN (>89); GLUCOSE,RANDOM 85 MG/DL (74-106); SODIUM (NA) 142 MEQ/L (136-145)
[2018-03-10 16:15] LABS: ALKALINE PHOSPHATASE 112 U/L (45-117); ALT (GPT) 28 U/L (12-78); TOTAL BILIRUBIN ADULT 0.3 MG/DL (0.2-1.0); TOTAL PROTEIN 6.3 GM/DL (6.4-8.2)
== END 2018-03-10 17:55 | disposition home or self-care (01) ==
LOC: NEPD 14:24
DX: F05 Delirium due to known physiological condition (principal); R79.89 Other specified abnormal findings of blood chemistry; F31.9 Bipolar disorder, unspecified; I25.10 Atherosclerotic heart disease of native coronary artery without angina pectoris; E78.00 Pure hypercholesterolemia, unspecified; H91.90 Unspecified hearing loss, unspecified ear; K21.9 Gastro-esophageal reflux disease without esophagitis; I10 Essential (primary) hypertension; R13.10 Dysphagia, unspecified; G47.00 Insomnia, unspecified; I25.2 Old myocardial infarction; Z72.0 Tobacco use
CPT/HCPCS: 80053; 80307; 82140; 83605; 85025; 85610; 85730; 99283

== ENCOUNTER 2018-03-20 20:02 | Inpatient (IN) | payer MEDICARE, OTHER ==
[~2018-03-20] VITALS: Ht 172.7 cm; Wt 62.8 kg
[2018-03-20 20:10] VITALS: BP 110/71; PULSE 65; RESP 12; TEMP 98.8; O2SAT 98
--- NOTE | 2018-03-20 20:30 | PD ---
HPI Chief Complaint: Psychiatric Symptoms Time Seen by Provider: 20:04 Travel History International Travel<30 days: No Contact w/Intl Traveler<30days: No Traveled to known affect area: No History of Present Illness HPI 63-year-old male presents to the ED under [employer] act for psychiatric evaluation. Patient lives at [facility], [place]. According to the [employer] act paperwork the patient had physical contact with other residents and there was concern that he would harm them. On presentation the patient denies suicidal or homicidal ideation. He states that he was sent to the ED because he lodged several complaints of mistreatment against the [facility]. He endorses history of depression and endorses compliance with antidepressant medications. He denies previous psychiatric hospitalization. He complains of chronic back pain but has no other somatic complaints. He denies drinking alcohol or using any illicit substances today. He is a pack per day smoker. PFSH Past Medical History Arthritis: No Asthma: No Autoimmune Disease: No Blood Disorders: No Bipolar Disorder: Yes Anxiety: Yes Depression: No Heart Rhythm Problems: No Cancer: Yes (says "i have tumors in my neck and shoulders") Cardiac Catheterization: No Cardiovascular Problems: Yes (ATHEROSCLEROTIC HEART DISEASE) High Cholesterol: Yes Chemotherapy: No Chest Pain: Yes (HX- STRESS TEST) Congestive Heart Failure: No COPD: No Cerebrovascular Accident: Yes Coronary Artery Disease: Yes Diabetes: No Diminished Hearing: Yes (both ears) Endocrine: No Gastrointestinal Disorders: Yes (DYSPHAGIA) GERD: Yes (GERD) Genitourinary: No Headaches: Yes Hepatitis: No Hiatal Hernia: No Hypertension: Yes Immune Disorder: No Implanted Vascular Access Dvce: No Insomnia: Yes Kidney Stones: No Musculoskeletal: No Neurologic: Yes Psychiatric: Yes (BIPOLAR, SCHITZOAFFECTIVE D/O, MAJOR DEPRESSIVE DISORDER) Reproductive: No Respiratory: No Immunizations Current: Yes Migraines: No Myocardial Infarction: Yes (2012) Radiation Therapy: No Renal Failure: No Seizures: Yes (UNSPECIFIED CONVULSIONS) Sickle Cell Disease: No Sleep Apnea: No Thyroid Disease: No Ulcer: Yes PNEUMOCCOCAL Vaccine (Year): 2010 Past Surgical History Abdominal Surgery: Yes (LEFT INGUINAL HERNIA) AICD: No Appendectomy: No Arteriovenous Shunt: No Cardiac Surgery: No Cholecystectomy: No Coronary Artery Bypass Graft: No Ear Surgery: No Endocrine Surgery: No Eye Surgery: No Genitourinary Surgery: No Gynecologic Surgery: No Insulin Pump: No Joint Replacement: No Oral Surgery: Yes Pacemaker: No Thoracic Surgery: No Other Surgery: Yes (PATIENT DENIED HAVING SURGERY IN PAST) Social History Alcohol Use: Yes Tobacco Use: Yes (3-4 CIGS A DAY ) Substance Use: No (kierra) Allergies-Medications (Allergen,Severity, Reaction): Coded Allergies: No Known Allergies (Verified Allergy, Unknown, 03/20/18) Reported Meds & Prescriptions Reported Meds & Active Scripts Active Trihexyphenidyl (Trihexyphenidyl HCl) 5 Mg Tab 5 Mg PO BID Metoprolol Succinate ER 24 HR (Metoprolol Succinate) 25 Mg Tab 25 Mg PO DAILY Klonopin (Clonazepam) 1 Mg Tab 1 Mg PO Q8HR Reported Multiple Vitamin 1 Tab 1 Tab PO DAILY Trazodone (Trazodone HCl) 50 Mg Tab 75 Mg PO HS Zestril (Lisinopril) 2.5 Mg Tab 30 Mg PO DAILY Nabumetone 500 Mg Tab 500 Mg PO BID Jqabzu-Iezpiqf-Wzdef 50-325-40 (Butalbital/Aspirin/Caffeine) 50 Mg-325 Mg-40 Mg Tablet PO BID Divalproex DR (Divalproex Sodium) 500 Mg Tabdr 1,000 Mg PO BID Tylenol (Acetaminophen) 325 Mg Tab 650 Mg PO QID Lactulose Liq (Lactulose) 10 Gm/15 Ml Soln 30 Ml PO TID Trihexyphenidyl (Trihexyphenidyl HCl) 2 Mg Tab 2 Mg PO BID Lansoprazole 30 Mg Capdr 30 Mg PO BID Duloxetine DR (Duloxetine HCl) 60 Mg Capdr 60 Mg PO BID Aspirin 81 Mg Chew 81 Mg CHEW DAILY Review of Systems Except as stated in HPI: all other systems reviewed are Neg Physical Exam Narrative GENERAL: Well-nourished, well-developed white male no acute distress. PSYCH: Somewhat pressured speech. Cooperative. Slightly bizarre affect. SKIN: Focused skin assessment warm/dry. HEAD: Normocephalic. EYES: No scleral icterus. No injection or drainage. NECK: Supple, trachea midline. No JVD or lymphadenopathy. CARDIOVASCULAR: Regular rate and rhythm without murmurs, gallops, or rubs. RESPIRATORY: Breath sounds clear and equal bilaterally. No accessory muscle use. GASTROINTESTINAL: Abdomen soft, non-tender, nondistended. Active bowel sounds. MUSCULOSKELETAL: No cyanosis, or edema. BACK: Nontender without obvious deformity. No CVA tenderness. Data Data Last Documented VS Vital Signs Date Time Temp Pulse Resp B/P (MAP) Pulse Ox O2 Delivery O2 Flow Rate FiO2 03/20/18 20:10 98.8 65 12 110/71 (84) 98 Orders Orders Psych Screen (03/20/18 20:18) Complete Blood Count With Diff (03/20/18 20:28) Comprehensive Metabolic Panel (03/20/18 20:28) Thyroid Stimulating Hormone (03/20/18 20:28) Valproic Acid (Depakene) (03/20/18 20:28) Drug Screen, Random Urine (03/20/18 20:28) Alcohol (Ethanol) (03/20/18 20:28) Trazodone (Desyrel) (03/20/18 21:45) Nabumetone (Relafen) (03/20/18 21:45) Divalproex Er (Depakote Er) (03/20/18 21:45) Lansoprazole Odt (Prevacid Odt) (03/20/18 21:45) Acetaminophen (Tylenol) (03/20/18 21:45) Duloxetine Dr (Cymbalta Dr) (03/20/18 21:45) Pill Splitter (Pill Splitter) (03/20/18 21:45) Labs Laboratory Tests Test 03/20/18 20:30 03/20/18 20:41 Blood Urea Nitrogen 16 MG/DL Creatinine 0.71 MG/DL Random Glucose 79 MG/DL Total Protein 6.7 GM/DL Albumin 3.4 GM/DL Calcium Level 8.6 MG/DL Alkaline Phosphatase 114 U/L Aspartate Amino Transf (AST/SGOT) 28 U/L Alanine Aminotransferase (ALT/SGPT) 24 U/L Total Bilirubin 0.3 MG/DL Sodium Level 140 MEQ/L Potassium Level 4.2 MEQ/L Chloride Level 105 MEQ/L Carbon Dioxide Level 30.0 MEQ/L Anion Gap 5 MEQ/L Estimat Glomerular Filtration Rate 112 ML/MIN Thyroid Stimulating Hormone 3rd Gen 1.250 uIU/ML Urine Opiates Screen NEG Urine Barbiturates Screen POS Valproic Acid (Depakene) Level 32 MCG/ML Urine Amphetamines Screen NEG Urine Benzodiazepines Screen POS Urine Cocaine Screen NEG Urine Cannabinoids Screen NEG Ethyl Alcohol Level LESS THAN 3 MG/DL White Blood Count 4.6 TH/MM3 Red Blood Count 3.63 MIL/MM3 Hemoglobin 12.6 GM/DL Hematocrit 35.4 % Mean Corpuscular Volume 97.5 FL Mean Corpuscular Hemoglobin 34.6 PG Mean Corpuscular Hemoglobin Concent 35.4 % Red Cell Distribution Width 13.0 % Platelet Count 234 TH/MM3 Mean Platelet Volume 8.1 FL Neutrophils (%) (Auto) 42.9 % Lymphocytes (%) (Auto) 39.4 % Monocytes (%) (Auto) 10.3 % Eosinophils (%) (Auto) 5.3 % Basophils (%) (Auto) 2.1 % Neutrophils # (Auto) 2.0 TH/MM3 Lymphocytes # (Auto) 1.8 TH/MM3 Monocytes # (Auto) 0.5 TH/MM3 Eosinophils # (Auto) 0.2 TH/MM3 Basophils # (Auto) 0.1 TH/MM3 CBC Comment DIFF FINAL Differential Comment MDM Medical Decision Making Medical Screen Exam Complete: Yes Emergency Medical Condition: Yes Differential Diagnosis Adjustment disorder versus anxiety versus bipolar versus depression versus dementia versus electrolyte disorder versus malingering versus mood disorder versus ODD versus psychosis versus PTSD versus schizophrenia versus schizoaffective disorder versus substance-induced mood disorder versus other Narrative Course 63-year-old male presents to the ED under [employer] act for psychiatric evaluation. Patient lives at [facility], [place]. According to the [employer] act paperwork the patient had physical contact with other residents and there was concern that he would harm them. On presentation the patient denies suicidal or homicidal ideation. He states that he was sent to the ED because he lodged several complaints of mistreatment against the [facility]. He endorses history of depression and endorses compliance with antidepressant medications. He denies previous psychiatric hospitalization. He complains of chronic back pain but has no other somatic complaints. He denies drinking alcohol or using any illicit substances today. He is a pack per day smoker. Vitals reviewed. 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 Is somewhat pressured speech but he answers questions appropriately. Physical exam is unremarkable. No concerning abnormalities a CBC, CMP, TSH. Tox screen positive for barbiturates and benzodiazepine. Valproic acid level 32. Patient was administered his evening medications. He is medically cleared for psychiatric evaluation. Griselda Huizar March 20, 2018 20:30
[2018-03-20 21:15] LABS: BASOPHIL # 0.1 TH/MM3 (0-0.2); BASOPHIL % 2.1 % (0.0-2.0); EOSINOPHIL # 0.2 TH/MM3 (0-0.4); EOSINOPHIL % 5.3 % (0.0-4.0); HEMATOCRIT 35.4 % (39.0-51.0); HEMOGLOBIN 12.6 GM/DL (13.0-17.0); LYMPH % 39.4 % (9.0-44.0); LYMPHOCYTE # 1.8 TH/MM3 (1.0-4.8); MEAN CELL VOLUME 97.5 FL (80.0-100.0); MEAN CORPUSCULAR HEMOGLOBIN 34.6 PG (27.0-34.0); MEAN CORPUSCULAR HGB CONC 35.4 % (32.0-36.0); MEAN PLATELET VOLUME 8.1 FL (7.0-11.0); MONO % 10.3 % (0.0-8.0); MONOCYTE # 0.5 TH/MM3 (0-0.9); NEUT % 42.9 % (16.0-70.0); PLATELET COUNT 234 TH/MM3 (150-450); RED BLOOD COUNT 3.63 MIL/MM3 (4.50-5.90); WHITE BLOOD COUNT 4.6 TH/MM3 (4.0-11.0)
[2018-03-20 21:30] LABS: ALT (GPT) 24 U/L (12-78)
[2018-03-20 21:40] LABS: ALKALINE PHOSPHATASE 114 U/L (45-117); TOTAL BILIRUBIN ADULT 0.3 MG/DL (0.2-1.0); TOTAL PROTEIN 6.7 GM/DL (6.4-8.2)
[2018-03-20 21:45] LABS: ALBUMIN 3.4 GM/DL (3.4-5.0); AST (GOT) 28 U/L (15-37); BLOOD UREA NITROGEN 16 MG/DL (7-18); CALCIUM 8.6 MG/DL (8.5-10.1); CHLORIDE 105 MEQ/L (98-107); CREATININE 0.71 MG/DL (0.60-1.30); GLOMERULAR FILTRATION RATE 112 ML/MIN (>89); GLUCOSE,RANDOM 79 MG/DL (74-106); SODIUM (NA) 140 MEQ/L (136-145)
[2018-03-20] MEDS ORDERED: LANSOPRAZOLE SOLUTAB 30 MG TAB NG ONE (21:45)
[2018-03-20] MEDS ORDERED: DIVALPROEX SODIUM E.R. 500 MG TAB PO ONE (21:45)
[2018-03-20] MEDS ORDERED: PILL SPLITTER OTHER PRN (21:45)
[2018-03-20] MEDS: traZODone HCL 50 MG TAB PO SCH (21:45)
[2018-03-20] MEDS ORDERED: DULoxetine HCl DR 60 MG CAP PO ONE (21:45)
[2018-03-20] MEDS ORDERED: NABUMETONE 500 MG TAB PO ONE (21:45)
[2018-03-20] MEDS ORDERED: ACETAMINOPHEN 325 MG TAB PO ONE (21:45)
[2018-03-20 22:52] VITALS: BP 102/55; PULSE 75; RESP 17; O2SAT 97
[2018-03-21 05:56] VITALS: BP 127/56; PULSE 63; RESP 16
[2018-03-21] MEDS ORDERED: MAGNESIUM HYDROXIDE SUSP 30 ML CUP PO PRN (08:45)
[2018-03-21] MEDS ORDERED: LORazepam 2 MG/ML VIAL IM PRN ×2 (08:45)
[2018-03-21] MEDS ORDERED: ALUMINUM/MAGNESIUM/SIMETH 30 ML CUP PO PRN (08:45)
[2018-03-21] MEDS ORDERED: LORazepam 0.5 MG TAB PO PRN (08:45)
[2018-03-21 10:00] VITALS: BP 121/63; PULSE 72; RESP 16; TEMP 98.7; O2SAT 97
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
[2018-03-21] MEDS: DIVALPROEX DR 500 MG TABEC PO SCH ×2 (14:50→20:07)
[2018-03-21] MEDS: DULoxetine HCl DR 60 MG CAP PO SCH ×2 (14:52→20:07)
[2018-03-21] MEDS: clonazePAM 1 MG TAB PO SCH ×2 (14:53→21:24)
[2018-03-21] MEDS: TRIHEXYPHENIDYL HCL 5 MG TAB PO SCH ×2 (14:54→20:08)
[2018-03-21] MEDS: LISINOPRIL 10 MG TAB PO SCH (14:55)
[2018-03-21] MEDS: METOPROLOL SUCCINATE 25 MG EXTENDED RELEASE TAB PO SCH (15:00)
[2018-03-21] MEDS: NICOTINE 21 MG/24 HR PATCH T-DERMAL SCH (15:00)
[2018-03-21] MEDS: ACETAMINOPHEN 325 MG TAB PO PRN ×2 (17:48→21:52)
[2018-03-21 18:00] VITALS: BP 100/66; PULSE 46; RESP 16; TEMP 97.4; O2SAT 100
[2018-03-21] MEDS: traZODone HCL 50 MG TAB PO SCH ×4 (20:08→23:24)
[2018-03-21] MEDS: LORazepam 1 MG TAB PO PRN (23:24)
[2018-03-22 05:17] VITALS: BP 95/53; PULSE 71; RESP 18; TEMP 98; O2SAT 99
[2018-03-22] MEDS: clonazePAM 1 MG TAB PO SCH ×3 (06:00→21:01)
[2018-03-22 07:37] LABS: BICARBONATE 31.8 MEQ/L (21.0-32.0); BLOOD UREA NITROGEN 12 MG/DL (7-18); CALCIUM 8.6 MG/DL (8.5-10.1); CHLORIDE 106 MEQ/L (98-107); CREATININE 0.62 MG/DL (0.60-1.30); GLOMERULAR FILTRATION RATE 131 ML/MIN (>89); GLUCOSE,RANDOM 78 MG/DL (74-106); SODIUM (NA) 142 MEQ/L (136-145)
[2018-03-22 07:38] LABS: CHOLESTEROL 156 MG/DL (120-200); TRIGLYCERIDES 106 MG/DL (42-150)
[2018-03-22 07:41] LABS: CHOLESTEROL/ HDL RATIO 2.63 RATIO; HDL CHOLESTEROL 59.1 MG/DL (40.0-60.0); LDL CHOLESTEROL 76 MG/DL (0-99)
[2018-03-22] MEDS: DIVALPROEX DR 500 MG TABEC PO SCH ×2 (08:38→21:02)
[2018-03-22] MEDS: DULoxetine HCl DR 60 MG CAP PO SCH ×2 (08:39→21:02)
[2018-03-22] MEDS: TRIHEXYPHENIDYL HCL 5 MG TAB PO SCH ×2 (08:39→21:02)
[2018-03-22] MEDS: LISINOPRIL 10 MG TAB PO SCH (08:39)
[2018-03-22] MEDS: QUEtiapine FUMARATE 25 MG TAB PO SCH ×2 (08:39→11:50)
[2018-03-22] MEDS: METOPROLOL SUCCINATE 25 MG EXTENDED RELEASE TAB PO SCH (08:39)
[2018-03-22] MEDS: NICOTINE 21 MG/24 HR PATCH T-DERMAL SCH (08:39)
[2018-03-22] MEDS: ACETAMINOPHEN 325 MG TAB PO PRN (09:02)
[2018-03-22 12:21] LABS: HEMOGLOBIN A1C 4.8 % (4.3-6.0)
--- NOTE | 2018-03-22 14:49 | HHI.PYPN ---
Subjective Remarks Patient initially seen by Dr. Rico his psychiatric H&P reviewed and agreed with, I have done the initial psychiatric template orders and med reconciliation review. Patient seen in the day room with nurse, patient showing rapid pressured speech quite loud was noted to be wearing hearing aids also. He is quite scattered and disorganized. Paranoid ideation related to his living situation. He has a green glove on his left and he says is giving him strength to use his hand. He complains of aches and pains in every joint in his body and over his shoulder blades. At this time I see no specific motor movements related to EPS. Though it is somewhat agitated with his movements. He denies voices at this time although at times he appears to be responding to internal stimuli. He does deny suicidality. At this time patient does meet criteria for further hospitalization under the Peck act. Dr. Rico has assigned first opinion petition supporting Peck act. I agree. Patient meets criteria for involuntary psychiatric hospitalization thus I will cosign second opinion petition supporting Peck act we will recheck Depakote blood level in about 2 days his initial admission level of 32 was quite low indicating possible noncompliance with his Depakote Review of Systems Except as stated in HPI: all other systems reviewed are Neg Mental Status Examination Appearance: Appropriate Consciousness: Alert Orientation: x4 Motor Activity: Normal gait Speech: Unremarkable Language: Adequate Fund of Knowledge: Adequate Attention and Concentration: Adequate Memory: Unremarkable Mood: Angry, Irritable Affect: Irritable Thought Process & Associations: Intact Thought Content: Appropriate Hallucination Type: None Delusion Type: Paranoid Suicidal Ideation: No Suicidal Plan: No Suicidal Intention: No Homicidal Ideation: No Homicidal Plan: No Homicidal Intention: No Insight: Poor Judgment: Poor Results Labs Test 03/22/18 06:27 Blood Urea Nitrogen 12 MG/DL Creatinine 0.62 MG/DL Random Glucose 78 MG/DL Calcium Level 8.6 MG/DL Sodium Level 142 MEQ/L Potassium Level 4.4 MEQ/L Chloride Level 106 MEQ/L Carbon Dioxide Level 31.8 MEQ/L Anion Gap 4 MEQ/L Estimat Glomerular Filtration Rate 131 ML/MIN Triglycerides Level 106 MG/DL Cholesterol Level 156 MG/DL LDL Cholesterol 76 MG/DL HDL Cholesterol 59.1 MG/DL Cholesterol/HDL Ratio 2.63 RATIO Vitals/IOs Vital Signs Date Time Temp Pulse Resp B/P (MAP) Pulse Ox O2 Delivery O2 Flow Rate FiO2 03/22/18 05:17 98.0 71 18 95/53 (67) 99 03/21/18 10:00 Room Air Intake and Output 03/22/18 03/22/18 03/23/18 08:00 16:00 00:00 Intake Total 240 ml 840 ml Balance 240 ml 840 ml Assessment & Plan Problem List: (1) Schizoaffective disorder ICD Codes: F25.9 - Schizoaffective disorder Status: Chronic Assessment & Plan Estimated LOS: days patient remains somewhat manic and psychotic with rapid pressured speech also somewhat disorganized. Justification for Cont. Inpt. At this time patient would decompensate a place to the lower level of care Discharge Planning Past return to his [facility] Request HC Surrog/Guard Advoc?: No Problem Qualifiers (1) Schizoaffective disorder: Qualified Codes: F25.0 - Schizoaffective disorder, bipolar type Rodney Vallejo MD March 22, 2018 14:49
[2018-03-22 18:08] VITALS: BP 112/67; PULSE 77; RESP 17; TEMP 97.6; O2SAT 95
[2018-03-22] MEDS: traZODone HCL 50 MG TAB PO SCH (21:02)
[2018-03-23 05:38] VITALS: BP 102/61; PULSE 96; RESP 16; TEMP 96.9
[2018-03-23] MEDS: clonazePAM 1 MG TAB PO SCH ×3 (06:38→21:34)
[2018-03-23] MEDS: LISINOPRIL 10 MG TAB PO SCH (08:24)
[2018-03-23] MEDS: NICOTINE 21 MG/24 HR PATCH T-DERMAL SCH (08:25)
[2018-03-23] MEDS: DULoxetine HCl DR 60 MG CAP PO SCH ×2 (08:25→21:34)
[2018-03-23] MEDS: METOPROLOL SUCCINATE 25 MG EXTENDED RELEASE TAB PO SCH (08:25)
[2018-03-23] MEDS: TRIHEXYPHENIDYL HCL 5 MG TAB PO SCH ×2 (08:25→21:34)
[2018-03-23] MEDS: DIVALPROEX DR 500 MG TABEC PO SCH ×2 (08:25→21:35)
[2018-03-23] MEDS: QUEtiapine FUMARATE 25 MG TAB PO SCH ×3 (08:25→20:18)
[2018-03-23] MEDS: ACETAMINOPHEN 325 MG TAB PO PRN ×4 (09:24→22:52)
--- NOTE | 2018-03-23 12:05 | HHI.PYPN ---
Subjective Remarks Patient seen in day room with floor staff, chart reviewed, patient complaint medications, patient discussed with nurse. Patient also discussed with Counselor Marli. He continues with the delusion that he will be moving in with a [employer] and leaving his [facility]. He continues with a fairly loud pressured speech that he also has hearing difficulties. He denies voices or visions denies suicidality is aware that it is May he did remember me from yesterday that his 2018. We will increase Seroquel to 50 mg 3 times a day Review of Systems Except as stated in HPI: all other systems reviewed are Neg Mental Status Examination Appearance: Appropriate Consciousness: Alert Orientation: x4 Motor Activity: Normal gait Speech: Unremarkable Language: Adequate Fund of Knowledge: Adequate Attention and Concentration: Adequate Memory: Unremarkable Mood: Angry, Irritable Affect: Irritable Thought Process & Associations: Intact Thought Content: Appropriate Hallucination Type: None Delusion Type: Paranoid Suicidal Ideation: No Suicidal Plan: No Suicidal Intention: No Homicidal Ideation: No Homicidal Plan: No Homicidal Intention: No Insight: Poor Judgment: Poor Results Vitals/IOs Vital Signs Date Time Temp Pulse Resp B/P (MAP) Pulse Ox O2 Delivery O2 Flow Rate FiO2 03/23/18 05:38 96.9 96 16 102/61 (75) 03/22/18 18:08 95 03/21/18 10:00 Room Air Intake and Output 03/23/18 03/23/18 03/24/18 08:00 16:00 00:00 Intake Total 120 ml Balance 120 ml Assessment & Plan Problem List: (1) Schizoaffective disorder ICD Codes: F25.9 - Schizoaffective disorder Status: Chronic Assessment & Plan Estimated LOS: days patient continues delusional, somewhat confused, with compliant medication and no behavioral problems for medication adjustment above Justification for Cont. Inpt. At this time patient would decompensate a place to the lower level of care Discharge Planning Past return to his [facility] Request HC Surrog/Guard Advoc?: No Problem Qualifiers (1) Schizoaffective disorder: Qualified Codes: F25.0 - Schizoaffective disorder, bipolar type Rodney Vallejo MD March 23, 2018 12:05
--- NOTE | 2018-03-23 13:53 | PD.CONS ---
HPI Service [facility] Hospitalists Consult Requested By Dr. Vallejo Reason for Consult Medical management Primary Care Physician Unknown Diagnoses: History of Present Illness 63-year-old male with past medical history significant for schizophrenia, epilepsy, HTN, HLD, CVA, dementia, arthritis, chronic back pain, and tardive dyskinesia related to antipsychotic use who resides in [facility] supported by [facility]. Apparently patient was in [place] when he having physical contact with other residents with concerns of harming them. Patient was Peck acted and brought to [place] for further psychiatric evaluation. Patient is first seen ambulating in the torres and complains to me of back and shoulder pain. He reports that he is not on all of the medications that he was taking at his [facility]. He reports that he uses Biofreeze for his shoulders and back for pain relief. He is interviewed in his room, calm but at moments irritable. He reports that he follows up with neurology and was last seen 2 weeks ago, unable to remember the name of his neurologist. He states that he had changes in his medications for his seizures done recently and reports compliant with his medications. He tells me that he has had 3 seizures in the past 2 months requiring him to visit the emergency department or be hospitalized. He also goes on to tell me that he had a doctor who overdosed him on lactulose. He states that this caused him to only be able to eat certain foods because of the bacteria in his stomach. He also is complaining of the food and states that he is not getting what he should be eating or what he had been getting prior to coming to the psychiatry department. He reports that he was getting a supplement shake with meals and is requesting this. He denies any fevers, chills , nausea, vomiting, diarrhea, dysuria, headache, dizziness, shortness of breath or cough. He reports that the psychiatrist has told him he will be going back to his [facility] tomorrow. Patient also tells me that he has made request to speak to the charge nurse as he has not been allowed to see documentation as to why he was brought here. Spoke with nurse who reports this is not the case, patient continues to be paranoid and has also been wearing gloves in his hands as he reports that he has electricity on them. He is also wearing glasses while indoors. Review of Systems Except as stated in HPI: all other systems reviewed are Neg Past Family Social History Allergies: Coded Allergies: No Known Allergies (Verified Allergy, Unknown, 03/20/18) Past Medical History Schizophrenia Epilepsy Hyperlipidemia Hypertension CVA Dementia Chronic back pain Arthritis Tardive dyskinesia related to antipsychotics Past Surgical History Right knee and right ankle surgery Lumbar spine surgery Reported Medications Reported Meds & Active Scripts Active Trihexyphenidyl (Trihexyphenidyl HCl) 5 Mg Tab 5 Mg PO BID Metoprolol Succinate ER 24 HR (Metoprolol Succinate) 25 Mg Tab 25 Mg PO DAILY Klonopin (Clonazepam) 1 Mg Tab 1 Mg PO Q8HR Reported Multiple Vitamin 1 Tab 1 Tab PO DAILY Trazodone (Trazodone HCl) 50 Mg Tab 75 Mg PO HS Zestril (Lisinopril) 2.5 Mg Tab 30 Mg PO DAILY Nabumetone 500 Mg Tab 500 Mg PO BID [id number]-[id number]-[id number] 50-325-40 (Butalbital/Aspirin/Caffeine) 50 Mg-325 Mg-40 Mg Tablet PO BID Divalproex DR (Divalproex Sodium) 500 Mg Tabdr 1,000 Mg PO BID Tylenol (Acetaminophen) 325 Mg Tab 650 Mg PO QID Lactulose Liq (Lactulose) 10 Gm/15 Ml Soln 30 Ml PO TID Trihexyphenidyl (Trihexyphenidyl HCl) 2 Mg Tab 2 Mg PO BID Lansoprazole 30 Mg Capdr 30 Mg PO BID Duloxetine DR (Duloxetine HCl) 60 Mg Capdr 60 Mg PO BID Aspirin 81 Mg Chew 81 Mg CHEW DAILY Active Ordered Medications Current Medications Medications (Trade) Dose Ordered Sig/Rhett Route Start Time Stop Time Status Last Admin (Pill Splitter) 1 ea UNSCH PRN OTHER 03/20/18 21:45 (Ativan) 1 mg Q6H PRN PO 03/21/18 08:45 03/21/18 23:24 (Ativan Inj) 1 mg Q6H PRN IM 03/21/18 08:45 (Tylenol) 650 mg Q4H PRN PO 03/21/18 08:45 03/23/18 13:36 (Milk Of Magnesia Liq) 30 ml DAILY PRN PO 03/21/18 08:45 (Mag-Al Plus Susp Liq) 30 ml Q6H PRN PO 03/21/18 08:45 (Habitrol 21 Mg Patch.24 Hr) 1 patch DAILY T-DERMAL 03/21/18 09:00 03/23/18 08:25 (KlonoPIN) 1 mg Q8HR PO 03/21/18 14:00 03/23/18 13:35 (Depakote Dr) 1,000 mg BID PO 03/21/18 13:15 03/23/18 08:25 (Cymbalta Dr) 60 mg BID PO 03/21/18 13:15 03/23/18 08:25 (Prinivil) 30 mg DAILY PO 03/21/18 13:15 03/23/18 08:24 (Toprol Xl) 25 mg DAILY PO 03/21/18 13:15 03/23/18 08:25 (Desyrel) 75 mg HS PO 03/21/18 21:00 03/22/18 21:02 (Artane) 5 mg BID PO 03/21/18 13:15 03/23/18 08:25 (SEROquel) 50 mg TID@0800,1400,2000 PO 03/23/18 14:00 03/23/18 14:00 Family History Mother: Reports she was on blood thinners unsure why, [place] Social History Tobacco: Smokes about 10-12 cigarettes since age of 21 Alcohol use: Reports seldom Illicit drug use: Denies Physical Exam Vital Signs Vital Signs Date Time Temp Pulse Resp B/P (MAP) Pulse Ox O2 Delivery O2 Flow Rate FiO2 03/23/18 05:38 96.9 96 16 102/61 (75) 03/22/18 18:08 97.6 77 17 112/67 (82) 95 Physical Exam GENERAL: This is a well-nourished, well-developed patient, in no apparent distress. Wearing sunglasses while indoors, gloved to left hand. SKIN: No rashes, ecchymoses or lesions. Cool and dry. HEAD: Atraumatic. Normocephalic. EYES: Pupils equal round and reactive. No scleral icterus. No injection or drainage. ENT: Nose without bleeding, purulent drainage. Airway patent. NECK: Trachea midline. No JVD. CARDIOVASCULAR: Regular rate and rhythm without murmurs, gallops, or rubs. RESPIRATORY: Clear to auscultation. Breath sounds equal bilaterally. No wheezes , rales, or rhonchi. GASTROINTESTINAL: Abdomen soft, non-tender, nondistended. No palpable masses. No guarding, normoactive bowel sounds. MUSCULOSKELETAL: Extremities without clubbing, cyanosis, or edema. No joint tenderness, effusion, or edema noted. No calf tenderness. NEUROLOGICAL: Awake and alert. Cranial nerves II through XII grossly intact. Motor and sensory grossly within normal limits. Five out of 5 muscle strength in all muscle groups. Pressed speech. Involuntary movements of shoulders, bilateral hands and legs at times. PSYCH: Irritable, disorganized thought process. Result Diagram: 03/20/18204003/22/1827 Assessment and Plan Assessment and Plan 63-year-old male with past medical history significant for schizophrenia, epilepsy, HTN, HLD, CVA, dementia, arthritis, chronic back pain, and tardive dyskinesia related to antipsychotic use who resides in [facility] supported by [facility]. Apparently patient was in [place] when he having physical contact with other residents with concerns of harming them. Patient was Peck acted and brought to [place] for further psychiatric evaluation. [facility] has been consulted to assist with medical management. Schizophrenia Tardive dyskinesia -Treatment per psychiatry, greatly appreciated - continue Trihexyphenidyl Epilepsy -Followed by neurology on outpatient setting, reports recent changes in medications -Currently on Depakote DR 1000 mg twice daily, subtherapeutic levels, no seizure activity reported by nursing staff -Seizure precautions, recheck Depakote levels tomorrow Hypertension, controlled -Continue lisinopril 30 mg daily, Toprol XL 25 mg daily -One episode of bradycardia on 03/21, will set parameters for beta-cheyenne Hx CVA HLD -Patient can continue low-dose aspirin, not on statin - goal LDL would be <70, currently 76. - Start Pravastatin 10mg HS Chronic back pain -Continue home dose Relafen 500 mg twice a day, Tylenol as needed, BenGay also as needed for pain Elevated ammonia levels -Patient reports ammonia overdose, questionable if this is related to psychiatric psychosis -Lactulose currently on hold, check ammonia levels tomorrow morning Tobacco abuse-encouraged cessation, nicotine patch DVT prophylaxis-ambulation Discussed with patient and nurse. Thank you for this consultation, will continue to follow along. Latanya Hoover March 23, 2018 13:53
[2018-03-23] MEDS ORDERED: MENTHOL/METHYL SALICYLATE OINT 30 GM TUBE TOPICAL PRN (16:45)
[2018-03-23] MEDS: NABUMETONE 500 MG TAB PO SCH (21:34)
[2018-03-23] MEDS: PRAVASTATIN SOD 10 MG TAB PO SCH (21:35)
[2018-03-24] MEDS: clonazePAM 1 MG TAB PO SCH ×3 (06:17→21:03)
[2018-03-24 06:39] VITALS: BP 98/63; PULSE 73; RESP 17; TEMP 97.6; O2SAT 91
[2018-03-24] MEDS: QUEtiapine FUMARATE 25 MG TAB PO SCH ×3 (08:00→21:00)
[2018-03-24] MEDS: METOPROLOL SUCCINATE 25 MG EXTENDED RELEASE TAB PO SCH (09:00)
[2018-03-24] MEDS: NICOTINE 21 MG/24 HR PATCH T-DERMAL SCH (09:00)
[2018-03-24] MEDS: LISINOPRIL 10 MG TAB PO SCH (09:00)
[2018-03-24] MEDS: TRIHEXYPHENIDYL HCL 5 MG TAB PO SCH ×2 (10:05→21:03)
[2018-03-24] MEDS: ASPIRIN 81 MG CHEW TAB CHEW SCH (10:07)
[2018-03-24] MEDS: DIVALPROEX DR 500 MG TABEC PO SCH ×2 (10:07→21:02)
[2018-03-24] MEDS: NABUMETONE 500 MG TAB PO SCH ×2 (10:07→21:03)
[2018-03-24] MEDS: DULoxetine HCl DR 60 MG CAP PO SCH ×2 (10:07→21:01)
[2018-03-24] MEDS: MULTIVITAMIN TAB PO SCH (10:08)
[2018-03-24] MEDS: ACETAMINOPHEN 325 MG TAB PO PRN (10:46)
--- NOTE | 2018-03-24 13:28 | HHI.PR ---
Subjective Remarks Follow-up visit for epilepsy, HTN, chronic pain, and history of elevated ammonia. Patient is initially seen in his room, however request to speak in the day room as his room echoes. He states that he keeps getting a different story when it comes to when he will be discharged. States that today he has a new psychiatrist, but his psychiatrist per patient was going to discharge him. He is also irritated over the fact that he has been unable to speak to the charge nurse as he has been asking to talk to some one. He does tell me that lab stopped by earlier today however did not draw his blood because he asked what labs they were drawling in the tach left and never came back. He denies any fevers, chills, nausea, vomiting, diarrhea, abdominal pain, cough, shortness of breath, headache, dizziness or chest pain. Objective Vitals Vital Signs Date Time Temp Pulse Resp B/P (MAP) Pulse Ox O2 Delivery O2 Flow Rate FiO2 03/24/18 06:39 97.6 73 17 98/63 (75) 91 I/O 03/23/18 03/23/18 03/23/18 03/24/18 03/24/18 03/24/18 07:00 15:00 23:00 07:00 15:00 23:00 Intake Total 120 ml 480 ml Balance 120 ml 480 ml Intake Oral 480 ml Oral Supplement 120 ml Result Diagram: 03/20/18204003/22/18626 Objective Remarks GENERAL: male. Wearing sunglasses while indoors, gloved to left hand. SKIN: Cool and dry. HEAD: Atraumatic. EYES: Pupils equal round and reactive. No scleral icterus. No injection or drainage. ENT: Nose without bleeding, purulent drainage. Airway patent. NECK: Trachea midline. CARDIOVASCULAR: Regular rate and rhythm without murmurs, gallops, or rubs. RESPIRATORY: Clear to auscultation. Breath sounds equal bilaterally. No wheezes , rales, or rhonchi. MUSCULOSKELETAL: Extremities without clubbing, cyanosis, or edema. No joint tenderness, effusion, or edema noted. NEUROLOGICAL: Awake and alert. Cranial nerves II through XII grossly intact. Motor and sensory grossly within normal limits. Five out of 5 muscle strength in all muscle groups. Pressed speech. Involuntary movements of shoulders, bilateral hands and legs at times. PSYCH: Irritable, disorganized thought process. A/P Assessment and Plan 63-year-old male with past medical history significant for schizophrenia, epilepsy, HTN, HLD, CVA, dementia, arthritis, chronic back pain, and tardive dyskinesia related to antipsychotic use who resides in [facility] supported by [facility]. Apparently patient was in [place] when he having physical contact with other residents with concerns of harming them. Patient was Peck acted and brought to [place] for further psychiatric evaluation. [facility] has been consulted to assist with medical management. Schizophrenia Tardive dyskinesia -Treatment per psychiatry, greatly appreciated - continue Trihexyphenidyl Epilepsy -Followed by neurology on outpatient setting, reports recent changes in medications -Currently on Depakote DR 1000 mg twice daily, subtherapeutic levels, no seizure activity reported by nursing staff -Seizure precautions, Depakote levels to be drawn today, discussed with nurse to call lab for collection. Hypertension, controlled -Continue lisinopril 30 mg daily, Toprol XL 25 mg daily -One episode of bradycardia on 03/21, parameters for beta-cheyenne Hx CVA HLD -Patient can continue low-dose aspirin, not on statin - goal LDL would be <70, currently 76. - Pravastatin 10mg HS Chronic back pain -Continue home dose Relafen 500 mg twice a day, Tylenol as needed, BenGay also as needed for pain Elevated ammonia levels -Patient reports ammonia overdose, questionable if this is related to psychiatric psychosis -Lactulose currently on hold, ammonia levels to be drawn today. Tobacco abuse-encouraged cessation, nicotine patch DVT prophylaxis-ambulation Discussed with patient and nurse. Latanya Hoover March 24, 2018 13:28
--- NOTE | 2018-03-24 13:38 | HHI.PYPN ---
Subjective Remarks Patient was seen and case discussed with nursing. Interview is moderately limited due to patient's hard of hearing. Patient has poor insight and denies any psychotic history. Today, he denies auditory or visual hallucinations. 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 He has not had any outbursts or aggressive behavior on the unit. Compliant with medications Mental Status Examination Appearance: Appropriate Consciousness: Alert Orientation: x4 Motor Activity: Normal gait Speech: Unremarkable Language: Adequate Fund of Knowledge: Adequate Attention and Concentration: Adequate Memory: Unremarkable Mood: Angry, Irritable Affect: Irritable Thought Process & Associations: Intact Thought Content: Appropriate Hallucination Type: None Delusion Type: Paranoid Suicidal Ideation: No Suicidal Plan: No Suicidal Intention: No Homicidal Ideation: No Homicidal Plan: No Homicidal Intention: No Insight: Poor Judgment: Poor Results Vitals/IOs Vital Signs Date Time Temp Pulse Resp B/P (MAP) Pulse Ox O2 Delivery O2 Flow Rate FiO2 03/24/18 06:39 97.6 73 17 98/63 (75) 91 03/21/18 10:00 Room Air Intake and Output 03/24/18 03/24/18 03/25/18 08:00 16:00 00:00 Intake Total 480 ml Balance 480 ml Assessment & Plan Problem List: (1) Schizoaffective disorder ICD Codes: F25.9 - Schizoaffective disorder Status: Chronic Assessment & Plan Continue current treatment plan Justification for Cont. Inpt. Patient would decompensate in a less restrictive setting Request HC Surrog/Guard Advoc?: No Problem Qualifiers (1) Schizoaffective disorder: Qualified Codes: F25.0 - Schizoaffective disorder, bipolar type Je Romo DO March 24, 2018 13:38
[2018-03-24 18:18] VITALS: BP 101/74; PULSE 76; RESP 18; TEMP 98.8; O2SAT 78
[2018-03-24] MEDS: traZODone HCL 50 MG TAB PO SCH (21:01)
[2018-03-24] MEDS: PRAVASTATIN SOD 10 MG TAB PO SCH (21:01)
[2018-03-25] MEDS: clonazePAM 1 MG TAB PO SCH ×3 (06:31→20:59)
[2018-03-25 06:39] VITALS: BP 117/64; PULSE 76; RESP 18; TEMP 97.4; O2SAT 97
[2018-03-25] MEDS: QUEtiapine FUMARATE 25 MG TAB PO SCH ×3 (08:45→20:57)
[2018-03-25] MEDS ORDERED: LACTULOSE SYRUP 20 GM/30 ML CUP PO SCH (09:00)
[2018-03-25] MEDS: METOPROLOL SUCCINATE 25 MG EXTENDED RELEASE TAB PO SCH (09:13)
[2018-03-25] MEDS: MULTIVITAMIN TAB PO SCH (09:13)
[2018-03-25] MEDS: DIVALPROEX DR 500 MG TABEC PO SCH ×2 (09:13→20:57)
[2018-03-25] MEDS: LISINOPRIL 10 MG TAB PO SCH (09:13)
[2018-03-25] MEDS: NABUMETONE 500 MG TAB PO SCH ×2 (09:14→20:57)
[2018-03-25] MEDS: DULoxetine HCl DR 60 MG CAP PO SCH ×2 (09:14→20:57)
[2018-03-25] MEDS: NICOTINE 21 MG/24 HR PATCH T-DERMAL SCH (09:14)
[2018-03-25] MEDS: TRIHEXYPHENIDYL HCL 5 MG TAB PO SCH ×2 (09:14→20:55)
[2018-03-25] MEDS: ASPIRIN 81 MG CHEW TAB CHEW SCH (09:14)
[2018-03-25] MEDS: ACETAMINOPHEN 325 MG TAB PO PRN (09:48)
--- NOTE | 2018-03-25 12:32 | HHI.PYPN ---
Subjective Remarks Patient was seen and case discussed with nursing. Per nursing, he has been irritable and demanding. Takes medication with difficulty. He is focused on his physical therapy. Somewhat hard of hearing limiting the interview. Denies any psychotic symptoms. Mental Status Examination Appearance: Appropriate Consciousness: Alert Orientation: x4 Motor Activity: Normal gait Speech: Unremarkable Language: Adequate Fund of Knowledge: Adequate Attention and Concentration: Adequate Memory: Unremarkable Mood: Angry, Irritable Affect: Irritable Thought Process & Associations: Intact Thought Content: Appropriate Hallucination Type: None Delusion Type: Paranoid Suicidal Ideation: No Suicidal Plan: No Suicidal Intention: No Homicidal Ideation: No Homicidal Plan: No Homicidal Intention: No Insight: Poor Judgment: Poor Results Labs Test 03/24/18 19:54 Ammonia 57 MCMOL/L Valproic Acid (Depakene) Level 63 MCG/ML Vitals/IOs Vital Signs Date Time Temp Pulse Resp B/P (MAP) Pulse Ox O2 Delivery O2 Flow Rate FiO2 03/25/18 06:39 97.4 76 18 117/64 (81) 97 03/21/18 10:00 Room Air Assessment & Plan Problem List: (1) Schizoaffective disorder ICD Codes: F25.9 - Schizoaffective disorder Status: Chronic Assessment & Plan Continue current treatment plan Justification for Cont. Inpt. Patient would decompensate in a less restrictive setting Request HC Surrog/Guard Advoc?: No Problem Qualifiers (1) Schizoaffective disorder: Qualified Codes: F25.0 - Schizoaffective disorder, bipolar type Je Romo DO March 25, 2018 12:32
--- NOTE | 2018-03-25 12:58 | HHI.PR ---
Subjective Remarks Follow-up visit for epilepsy, HTN, chronic pain, and history of elevated ammonia. Patient is seen and examined in his room, he is once again asking when he will be allowed to see the charge nurse as he has complaints that need to be filed. he denies any fevers, chills, n/v/d, headache, dizziness, cough, or chest pain. Discussed labs regarding ammonia levels and Valproic acid levels. Reluctant to at take Lactulose TID, then agreeable to take this BID. Objective Vitals Vital Signs Date Time Temp Pulse Resp B/P (MAP) Pulse Ox O2 Delivery O2 Flow Rate FiO2 03/25/18 06:39 97.4 76 18 117/64 (81) 97 03/24/18 18:18 98.8 76 18 101/74 (83) 78 I/O 03/24/18 03/24/18 03/24/18 03/25/18 03/25/18 03/25/18 07:00 15:00 23:00 07:00 15:00 23:00 Intake Total 480 ml 840 ml Balance 480 ml 840 ml Intake Oral 480 ml 840 ml # Voids 5 Result Diagram: 03/22/18 0627 Objective Remarks GENERAL: male. Wearing sunglasses while indoors, gloved to left hand. SKIN: Cool and dry. CARDIOVASCULAR: Regular rate and rhythm without murmurs, gallops, or rubs. RESPIRATORY: Clear to auscultation. Breath sounds equal bilaterally. No wheezes , rales, or rhonchi. MUSCULOSKELETAL: Extremities without clubbing, cyanosis, or edema. No joint tenderness, effusion, or edema noted. NEUROLOGICAL: Awake and alert. Cranial nerves II through XII grossly intact. Motor and sensory grossly within normal limits. Five out of 5 muscle strength in all muscle groups. Pressed speech. Involuntary movements of shoulders, bilateral hands and legs at times. PSYCH: Irritable, disorganized thought process. A/P Assessment and Plan 63-year-old male with past medical history significant for schizophrenia, epilepsy, HTN, HLD, CVA, dementia, arthritis, chronic back pain, and tardive dyskinesia related to antipsychotic use who resides in [facility] supported by [facility]. Apparently patient was in [place] when he having physical contact with other residents with concerns of harming them. Patient was Pe[place] acted and brought to [place] for further psychiatric evaluation. [facility] has been consulted to assist with medical management. Schizophrenia Tardive dyskinesia -Treatment per psychiatry, greatly appreciated - continue Trihexyphenidyl Epilepsy -Followed by neurology on outpatient setting, reports recent changes in medications -Currently on Depakote DR 1000 mg twice daily, subtherapeutic levels on admission, no seizure activity reported by nursing staff -Seizure precautions, Depakote levels therapeutic at 63. Hypertension, controlled -Continue lisinopril 30 mg daily, Toprol XL 25 mg daily -One episode of bradycardia on 03/21, parameters for beta-cheyenne - BP and HR stable Hx CVA HLD -Patient can continue low-dose aspirin, not on statin - goal LDL would be <70, currently 76. - Pravastatin 10mg HS Chronic back pain -Continue home dose Relafen 500 mg twice a day, Tylenol as needed, BenGay also as needed for pain Elevated ammonia levels -Patient reports ammonia overdose, questionable if this is related to psychiatric psychosis - Ammonia level 57, discussed w/ patient importance of medication compliance. -Lactulose 30ml BID, recheck in next few days. Tobacco abuse-encouraged cessation, nicotine patch DVT prophylaxis-ambulation Discussed with patient and nurse (nurse aware of patients request to talk to charge nurse). Latanya Hoover March 25, 2018 12:57
[2018-03-25 17:47] VITALS: BP 110/64; PULSE 64; RESP 16; TEMP 97.8; O2SAT 98
[2018-03-25] MEDS: traZODone HCL 50 MG TAB PO SCH (20:58)
[2018-03-25] MEDS: PRAVASTATIN SOD 10 MG TAB PO SCH (21:00)
[2018-03-25] MEDS: LACTULOSE SYRUP 20 GM/30 ML CUP PO SCH (21:00)
[2018-03-26] MEDS: clonazePAM 1 MG TAB PO SCH ×3 (06:01→21:40)
[2018-03-26 06:26] VITALS: BP 96/52; PULSE 86; RESP 16; TEMP 97.7; O2SAT 98
[2018-03-26] MEDS: QUEtiapine FUMARATE 25 MG TAB PO SCH ×3 (08:00→21:42)
[2018-03-26] MEDS: ASPIRIN 81 MG CHEW TAB CHEW SCH (08:44)
[2018-03-26] MEDS: METOPROLOL SUCCINATE 25 MG EXTENDED RELEASE TAB PO SCH (08:44)
[2018-03-26] MEDS: LISINOPRIL 10 MG TAB PO SCH (08:44)
[2018-03-26] MEDS: TRIHEXYPHENIDYL HCL 5 MG TAB PO SCH ×2 (08:44→21:38)
[2018-03-26] MEDS: MULTIVITAMIN TAB PO SCH (08:45)
[2018-03-26] MEDS: DIVALPROEX DR 500 MG TABEC PO SCH ×2 (08:45→21:39)
[2018-03-26] MEDS: DULoxetine HCl DR 60 MG CAP PO SCH ×2 (08:45→21:40)
[2018-03-26] MEDS: NABUMETONE 500 MG TAB PO SCH ×2 (08:45→21:39)
[2018-03-26] MEDS: ACETAMINOPHEN 325 MG TAB PO PRN ×3 (08:45→21:42)
[2018-03-26] MEDS: LACTULOSE SYRUP 20 GM/30 ML CUP PO SCH ×2 (08:46→21:43)
[2018-03-26] MEDS: NICOTINE 21 MG/24 HR PATCH T-DERMAL SCH (08:46)
--- NOTE | 2018-03-26 09:47 | HHI.PR ---
Subjective Remarks Follow-up visit for epilepsy, HTN, chronic pain, and history of elevated ammonia. Patient is seen and examined in bed this morning in no acute distress. He denies any fevers, chills, nausea, vomiting, diarrhea, headaches, dizziness, shortness of breath, cough or chest pain. He states that he is supposed to be going home today, still awaiting to speak to the charge nurse. He voices no other acute complaints or concerns. Objective Vitals Vital Signs Date Time Temp Pulse Resp B/P (MAP) Pulse Ox O2 Delivery O2 Flow Rate FiO2 03/26/18 06:26 97.7 86 16 96/52 (67) 98 03/25/18 17:47 97.8 64 16 110/64 (79) 98 Result Diagram: 03/22/18626 Objective Remarks GENERAL: male. Wearing sunglasses while indoors, gloved to left hand. SKIN: Cool and dry. CARDIOVASCULAR: Regular rate and rhythm without murmurs, gallops, or rubs. RESPIRATORY: Clear to auscultation. Breath sounds equal bilaterally. No wheezes , rales, or rhonchi. MUSCULOSKELETAL: Extremities without clubbing, cyanosis, or edema. No joint tenderness, effusion, or edema noted. NEUROLOGICAL: Awake and alert. Cranial nerves II through XII grossly intact. Motor and sensory grossly within normal limits. Five out of 5 muscle strength in all muscle groups. Pressed speech. Involuntary movements of shoulders, bilateral hands and legs at times. PSYCH: Disorganized thought process, pleasant. A/P Assessment and Plan 63-year-old male with past medical history significant for schizophrenia, epilepsy, HTN, HLD, CVA, dementia, arthritis, chronic back pain, and tardive dyskinesia related to antipsychotic use who resides in [facility] supported by [facility]. Apparently patient was in [place] when he having physical contact with other residents with concerns of harming them. Patient was Peck acted and brought to [place] for further psychiatric evaluation. [facility] has been consulted to assist with medical management. Schizophrenia Tardive dyskinesia -Treatment per psychiatry, greatly appreciated - continue Trihexyphenidyl Epilepsy -Followed by neurology on outpatient setting, reports recent changes in medications -Currently on Depakote DR 1000 mg twice daily, subtherapeutic levels on admission, no seizure activity reported by nursing staff -Seizure precautions, Depakote levels therapeutic at 63. Hypertension, controlled -Continue lisinopril 30 mg daily, Toprol XL 25 mg daily -One episode of bradycardia on 03/21, parameters for beta-cheyenne - BP and HR stable Hx CVA HLD -Patient can continue low-dose aspirin, not on statin - goal LDL would be <70, currently 76. - Pravastatin 10mg HS Chronic back pain -Continue home dose Relafen 500 mg twice a day, Tylenol as needed, BenGay also as needed for pain Elevated ammonia levels -Patient reports ammonia overdose, questionable if this is related to psychiatric psychosis - Ammonia level 57, discussed w/ patient importance of medication compliance. -Lactulose 30ml BID, recheck level 03/27 Tobacco abuse-encouraged cessation, nicotine patch DVT prophylaxis-ambulation Discussed with patient and nurse, nurse reports patient has already spoken to charge nurse yesterday afternoon. Latanya Hoover March 26, 2018 09:47
[2018-03-26] MEDS ORDERED: DIVA500T PO (11:50)
[2018-03-26] MEDS ORDERED: LANS30CA PO (11:50)
[2018-03-26] MEDS ORDERED: ASPI-516 CHEW (11:50)
[2018-03-26] MEDS ORDERED: SERO25TA PO (11:50)
[2018-03-26] MEDS ORDERED: LISI10TA3 PO (11:50)
[2018-03-26] MEDS ORDERED: DULO1CAP3 PO (11:50)
[2018-03-26] MEDS ORDERED: TRAZ50TA12 PO (11:50)
[2018-03-26] MEDS ORDERED: TRIH5TAB2 PO (11:50)
[2018-03-26] MEDS ORDERED: METO1TAB42 PO (11:50)
[2018-03-26] MEDS ORDERED: LACT10SO PO (11:50)
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
[2018-03-26] MEDS: LORazepam 1 MG TAB PO PRN (14:11)
--- NOTE | 2018-03-26 15:18 | PD.TTN ---
Patient Problems 1. Discharge planning 2. Medication compliance 3. Knowledge deficit 4. Lack of coping skills Progress Toward Goals Provider Present: Dr. Ramesh Vallejo Nurse(s) Present: Mercedes Nurse(s) Input: 03/26/18- Yesterday patient was med compliant. Pt. was often observed pacing the unit. Pt. is discharged focused. Group Spec/RT/OT/PEREZ Present: ANA Kamara (03/26/18- Pt. only attends select groups) Documentation Teaching Recipient: Best Cunningham March 26, 2018 15:17
[2018-03-26 18:13] VITALS: BP 93/54; PULSE 63; RESP 18; TEMP 97.4; O2SAT 100
[2018-03-26] MEDS: traZODone HCL 50 MG TAB PO SCH (21:38)
[2018-03-26] MEDS: PRAVASTATIN SOD 10 MG TAB PO SCH (21:40)
[2018-03-27 04:00] VITALS: BP 87/52; PULSE 61; RESP 16; TEMP 98.7
[2018-03-27] MEDS: clonazePAM 1 MG TAB PO SCH ×3 (06:00→21:21)
[2018-03-27] MEDS: NICOTINE 21 MG/24 HR PATCH T-DERMAL SCH (09:00)
[2018-03-27] MEDS: LISINOPRIL 10 MG TAB PO SCH (09:00)
[2018-03-27] MEDS: METOPROLOL SUCCINATE 25 MG EXTENDED RELEASE TAB PO SCH (09:00)
[2018-03-27] MEDS: TRIHEXYPHENIDYL HCL 5 MG TAB PO SCH ×2 (09:40→21:12)
[2018-03-27] MEDS: LACTULOSE SYRUP 20 GM/30 ML CUP PO SCH ×2 (09:40→21:10)
[2018-03-27] MEDS: MULTIVITAMIN TAB PO SCH (09:40)
[2018-03-27] MEDS: DULoxetine HCl DR 60 MG CAP PO SCH ×2 (09:40→21:13)
[2018-03-27] MEDS: QUEtiapine FUMARATE 25 MG TAB PO SCH (09:41)
[2018-03-27] MEDS: NABUMETONE 500 MG TAB PO SCH ×2 (09:43→21:11)
[2018-03-27] MEDS: ASPIRIN 81 MG CHEW TAB CHEW SCH (09:43)
[2018-03-27] MEDS: DIVALPROEX DR 500 MG TABEC PO SCH ×2 (09:50→21:10)
[2018-03-27] MEDS: ACETAMINOPHEN 325 MG TAB PO PRN (09:50)
--- NOTE | 2018-03-27 14:15 | HHI.PYPN ---
Subjective Remarks Patient seen in day room with josefina, chart reviewed, patient complaint medications, discussed with staff, patient continues somewhat intrusive and grandiose will no significant behavioral problems. Remains issues with his placement. We will increase his Seroquel to 50 mg a.m. 100 mg 2 PM 100 mg at 10 PM Review of Systems Except as stated in HPI: all other systems reviewed are Neg Mental Status Examination Appearance: Appropriate Consciousness: Alert Orientation: x4 Motor Activity: Normal gait Speech: Unremarkable Language: Adequate Fund of Knowledge: Adequate Attention and Concentration: Adequate Memory: Unremarkable Mood: Angry, Irritable Affect: Irritable Thought Process & Associations: Intact Thought Content: Appropriate Hallucination Type: None Delusion Type: Paranoid Suicidal Ideation: No Suicidal Plan: No Suicidal Intention: No Homicidal Ideation: No Homicidal Plan: No Homicidal Intention: No Insight: Poor Judgment: Poor Results Labs Test 03/27/18 08:19 Ammonia 42 MCMOL/L Vitals/IOs Vital Signs Date Time Temp Pulse Resp B/P (MAP) Pulse Ox O2 Delivery O2 Flow Rate FiO2 03/27/18 04:00 98.7 61 16 87/52 (64) 03/26/18 18:13 100 Intake and Output 03/27/18 03/27/18 03/28/18 08:00 16:00 00:00 Intake Total 1060 ml Balance 1060 ml Assessment & Plan Problem List: (1) Schizoaffective disorder ICD Codes: F25.9 - Schizoaffective disorder Status: Chronic Assessment & Plan Estimated LOS: days continue to work on placement issues, we will also adjust medications see medication adjustment above Justification for Cont. Inpt. At this time patient may decompensate if not placed in an appropriate level of care Discharge Planning Placement remains problematic Request HC Surrog/Guard Advoc?: No Problem Qualifiers (1) Schizoaffective disorder: Qualified Codes: F25.0 - Schizoaffective disorder, bipolar type Rodney Vallejo MD March 27, 2018 14:15
[2018-03-27 16:14] VITALS: BP 94/61
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
[2018-03-27] MEDS: traZODone HCL 50 MG TAB PO SCH (21:12)
[2018-03-27] MEDS: PRAVASTATIN SOD 10 MG TAB PO SCH (21:13)
[2018-03-27] MEDS: QUEtiapine FUMARATE 100 MG TAB PO SCH (21:21)
[2018-03-28 06:21] VITALS: BP_SYST 100; BP_SYST 104; BP_DIAS 54; BP_DIAS 56; BP_DIAS 67; PULSE 79; RESP 18; TEMP 98.1; O2SAT 99
[2018-03-28] MEDS: clonazePAM 1 MG TAB PO SCH ×2 (06:44→15:01)
[2018-03-28] MEDS: METOPROLOL SUCCINATE 25 MG EXTENDED RELEASE TAB PO SCH (09:00)
[2018-03-28] MEDS: NICOTINE 21 MG/24 HR PATCH T-DERMAL SCH (09:00)
[2018-03-28] MEDS ORDERED: QUEtiapine FUMARATE 25 MG TAB PO SCH (09:00)
[2018-03-28] MEDS: MULTIVITAMIN TAB PO SCH (09:25)
[2018-03-28] MEDS: LACTULOSE SYRUP 20 GM/30 ML CUP PO SCH (09:25)
[2018-03-28] MEDS: DIVALPROEX DR 500 MG TABEC PO SCH (09:25)
[2018-03-28] MEDS: TRIHEXYPHENIDYL HCL 5 MG TAB PO SCH (09:26)
[2018-03-28] MEDS: NABUMETONE 500 MG TAB PO SCH (09:26)
[2018-03-28] MEDS: ASPIRIN 81 MG CHEW TAB CHEW SCH (09:26)
[2018-03-28] MEDS: DULoxetine HCl DR 60 MG CAP PO SCH (09:26)
[2018-03-28] MEDS: ACETAMINOPHEN 325 MG TAB PO PRN (09:34)
--- NOTE | 2018-03-28 12:17 | HHI.PYPN ---
Subjective Remarks There is a bed available today, patient is been except to [facility]. Patient to be discharged today to that facility. Patient has tolerated the small adjustment in the Seroquel made yesterday. No Rx for Seroquel will be written otherwise continue other medications no change Review of Systems Except as stated in HPI: all other systems reviewed are Neg Mental Status Examination Appearance: Appropriate Consciousness: Alert Orientation: x4 Motor Activity: Normal gait Speech: Unremarkable Language: Adequate Fund of Knowledge: Adequate Attention and Concentration: Adequate Memory: Unremarkable Mood: Angry, Irritable Affect: Irritable Thought Process & Associations: Intact Thought Content: Appropriate Hallucination Type: None Delusion Type: Paranoid Suicidal Ideation: No Suicidal Plan: No Suicidal Intention: No Homicidal Ideation: No Homicidal Plan: No Homicidal Intention: No Insight: Poor Judgment: Poor Results Vitals/IOs Vital Signs Date Time Temp Pulse Resp B/P (MAP) Pulse Ox O2 Delivery O2 Flow Rate FiO2 03/28/18 06:21 98.1 79 18 100/54 (69) 99 100/67 (78) 104/56 (72) Intake and Output 03/28/18 03/28/18 03/29/18 08:00 16:00 00:00 Intake Total 240 ml Balance 240 ml Assessment & Plan Problem List: (1) Schizoaffective disorder ICD Codes: F25.9 - Schizoaffective disorder Status: Chronic Assessment & Plan Estimated LOS: days patient to be discharged today to [facility] patient may continue all her [place] his room on 03/26 except for the new adjustment dosages on the Seroquel which will be written today. Follow-up services through [facility] Justification for Cont. Inpt. Patient discharged today to [facility] Discharge Planning See above Request HC Surrog/Guard Advoc?: No Problem Qualifiers (1) Schizoaffective disorder: Qualified Codes: F25.0 - Schizoaffective disorder, bipolar type Rodney Vallejo MD March 28, 2018 12:17
[2018-03-28] MEDS ORDERED: SERO50TA PO (12:22)
[2018-03-28] MEDS: QUEtiapine FUMARATE 100 MG TAB PO SCH (15:01)
== END 2018-03-28 15:05 | DRG 885 ==
LOC: NEPJ 20:02 → NEDA 03-21 08:44 → H250 03-21 10:45 → H260 03-23 12:00
PROVIDERS: ADMIT Psychiatry & Neurology Psychiatry; ATTEND Psychiatry & Neurology Psychiatry
DX: F25.0 Schizoaffective disorder, bipolar type (principal); F03.90 Unspecified dementia, unspecified severity, without behavioral disturbance, psychotic disturbance, mood disturbance, and anxiety; G24.01 Drug induced subacute dyskinesia; T43.505A Adverse effect of unspecified antipsychotics and neuroleptics, initial encounter; I10 Essential (primary) hypertension; R00.1 Bradycardia, unspecified; F32.9 Major depressive disorder, single episode, unspecified; F41.9 Anxiety disorder, unspecified; I25.10 Atherosclerotic heart disease of native coronary artery without angina pectoris; K21.9 Gastro-esophageal reflux disease without esophagitis; G89.29 Other chronic pain; M54.5 Low back pain; M25.519 Pain in unspecified shoulder; G40.909 Epilepsy, unspecified, not intractable, without status epilepticus; H91.90 Unspecified hearing loss, unspecified ear; E78.5 Hyperlipidemia, unspecified; G47.00 Insomnia, unspecified; M19.90 Unspecified osteoarthritis, unspecified site; F17.210 Nicotine dependence, cigarettes, uncomplicated; Z86.73 Personal history of transient ischemic attack (TIA), and cerebral infarction without residual deficits; I25.2 Old myocardial infarction; Z91.5 Personal history of self-harm; Z79.899 Other long term (current) drug therapy
CPT/HCPCS: 80048; 80053; 80061; 80164; 80307; 82140; 83036; 84443; 85025; 99285